=== PATIENT | female | born 1955 | race Caucasian/White ===

== ENCOUNTER → 2016-08-17 | Outpatient (CLI) | payer OTHER ==
[~2016-08-17] MED LIST: ADVI200T PO; ASPI81TA21 PO; ATOR1TAB21 PO; CITA20TA4 PO; GARL1CAP PO; HYDR25TAB PO; LISI-538 PO; OXYB15TA PO; VITA-193 PO; VITA200038 PO
[2016-08-17 12:25] LABS: BASO % 0.8 % (0.0-1.0); EOS # 0.3 K/mm3 (0.0-0.50); EOS % 4.6 % (0.0-3.0); LARGE UNSTAINED CELL # 0.2 K/mm3 (0.0-0.4); LARGE UNSTAINED CELL % 2.8 % (0.0-4.0); LYMPH # 2.2 K/mm3 (1.5-4.5); LYMPH % 35.6 % (24.0-44.0); MEAN CORPUSCULAR HEMOGLOBIN 30.9 pg (27.0-33.0); MEAN CORPUSCULAR HGB CONC 33.6 g/dl (32.0-36.5); MONO # 0.3 K/mm3 (0.0-0.8); MONO % 5.3 % (0.0-5.0); NEUTROPHILS # 2.8 K/mm3 (1.8-7.7); NEUTROPHILS % 50.9 % (36.0-66.0); PLATELET COUNT, AUTOMATED 210 k/mm3 (150-450); RED CELL DISTRIBUTION WIDTH 13.2 % (11.5-14.5); WHITE BLOOD COUNT 5.6 K/mm3 (4.0-10.0)
[2016-08-17 12:41] LABS: VITAMIN B12 LEVEL 502 PG/ML
[2016-08-17 12:42] LABS: FOLATE 9.2 NG/ML
[2016-08-17 12:51] LABS: ANION GAP 9 MEQ/L (8-16); BLOOD UREA NITROGEN 20 MG/DL (7-18); CARBON DIOXIDE LEVEL 30 MEQ/L (21-32); CHLORIDE LEVEL 103 MEQ/L (98-107); CREATININE FOR GFR 0.74 MG/DL (0.55-1.02); GLOMERULAR FILTRATION RATE > 60.0 (>45); GLUCOSE, FASTING 91 MG/DL (80-110); POTASSIUM SERUM 4.8 MEQ/L (3.5-5.1); SODIUM LEVEL 142 MEQ/L (136-145)
[2016-08-17 12:52] LABS: ALBUMIN/GLOBULIN RATIO 1.03 (1.00-1.93); ALKALINE PHOSPHATASE 68 U/L (45-117); ALT/SGPT 27 U/L (12-78); AST/SGOT 17 U/L (15-37); BILIRUBIN,TOTAL 0.6 MG/DL (0.2-1.0); CHOLESTEROL LEVEL 216 MG/DL (<200); FERRITIN 133 NG/ML (8-252); FREE T4 0.94 NG/DL (0.76-1.46); PERCENT SATURATION 18.5 % (13.2-37.4); TOTAL IRON BINDING CAPACITY 363 UG/DL (250-450); TOTAL PROTEIN 7.9 GM/DL (6.4-8.2); TRIGLYCERIDES LEVEL 148 MG/DL (<150)
== END ==
LOC: M LAB 11:32
PROVIDERS: ATTEND Physician Assistant Medical
DX: Z11.59 Encounter for screening for other viral diseases (principal); E78.2 Mixed hyperlipidemia; D50.9 Iron deficiency anemia, unspecified

== ENCOUNTER → 2017-01-25 | Outpatient (CLI) | payer OTHER ==
[~2017-01-25] MED LIST changes: +GARL10004 PO; -GARL1CAP PO
--- NOTE | 2017-01-26 01:28 | REP ---
Clinical: Pain. Technique: AP, lateral, bilateral oblique and sunrise views of the right knee. Findings: Early moderate arthritic changes include sclerosis to the tibial plateau and posterior patellar margin as well as associated patellofemoral and tibiofemoral joint space narrowing. Cortical irregularity and subtle early spurring involves the femoral condyles as well as the lateral margin of the patella. No acute fracture dislocation. No obvious effusion. Vascular calcifications noted. Impression: Early moderate arthritic changes. Signed by Sotero Ulloa MD 01/26/2017 01:20 A
== END ==
LOC: M WUC 14:20
PROVIDERS: ATTEND Physician Assistant Medical
DX: M17.11 Unilateral primary osteoarthritis, right knee (principal)

== ENCOUNTER → 2017-02-15 | Outpatient (CLI) | payer OTHER ==
--- NOTE | 2017-02-15 11:53 | REPMRS ---
Patient History The patient states she has not had a clinical breast exam in over a year. Patient is postmenopausal. No known family history of cancer. Digital Woman Screen Mammo: February 15, 2017 - Exam #: [id number] Bilateral CC and MLO view(s) were taken. Technologist: Georgina Kearns, Technologist Prior study comparison: January 08, 2016, digital woman screen mammo performed at [facility]. July 30, 2014, digital woman screen mammo performed at [facility]. February 01, 2012, digital woman screen mammo performed at [facility] to [facility]. FINDINGS: There are scattered fibroglandular densities. There has been no change in the appearance of the mammogram from the prior studies. There is a mild amount of scattered fibroglandular density which is fairly symmetric. There is no interval development of dominant mass, architectural distortion, or clustered microcalcification suggestive of malignancy. ASSESSMENT: BI-RADS/ACR category 1 mammogram. Negative. Recommendation Routine screening mammogram in 1 year (for women over age 40). This mammogram was interpreted with the aid of an FDA-approved computer-aided dectection system. Electronically Signed By: Ever Steen MD 02/15/17 1402
== END ==
LOC: M WHC 08:48
PROVIDERS: ATTEND Physician Assistant Medical
DX: Z12.31 Encounter for screening mammogram for malignant neoplasm of breast (principal); Z78.0 Asymptomatic menopausal state

== ENCOUNTER → 2017-04-19 | Outpatient (REF) | payer OTHER | LOC: M LAB REF 16:50 | PROVIDERS: ATTEND Physician Assistant Medical | DX: N39.0 Urinary tract infection, site not specified (principal) ==

== ENCOUNTER → 2017-06-04 | Outpatient (REF) | payer OTHER | LOC: M LAB REF 15:59 | PROVIDERS: ATTEND Physician Assistant Medical | DX: R30.9 Painful micturition, unspecified (principal) ==

== ENCOUNTER → 2017-06-17 | Outpatient (REF) | payer OTHER | LOC: M LAB REF 16:10 | PROVIDERS: ATTEND Physician Assistant Medical | DX: R30.0 Dysuria (principal) ==

== ENCOUNTER → 2017-07-20 | Outpatient (CLI) | payer OTHER ==
[2017-07-20 15:23] LABS: BASO # 0.1 10^3/uL (0.0-0.2); BASO % 0.8 % (0.0-1.0); EOS # 0.3 10^3/uL (0.0-0.50); EOS % 5.5 % (0.0-3.0); HEMOGLOBIN 12.2 g/dl (12.0-16.0); IMMATURE GRANULOCYTE % 0.3 % (0-0); LYMPH # 2.7 10^3/uL (1.5-4.5); LYMPH % 44.6 % (24.0-44.0); MEAN CORPUSCULAR HEMOGLOBIN 30.1 pg (27.0-33.0); MEAN CORPUSCULAR VOLUME 91.4 fl (80.0-96.0); MONO # 0.3 10^3/uL (0.0-0.8); MONO % 5.6 % (0.0-5.0); NEUTROPHILS # 2.6 10^3/uL (1.8-7.7); NEUTROPHILS % 43.2 % (36.0-66.0); PLATELET COUNT, AUTOMATED 230 10^3/uL (150-450); RED BLOOD COUNT 4.05 10^6/uL (4.00-5.40); WHITE BLOOD COUNT 6.1 10^3/uL (4.0-10.0)
[2017-07-20 15:49] LABS: ANION GAP 6 MEQ/L (8-16); BLOOD UREA NITROGEN 21 MG/DL (7-18); CALCIUM LEVEL 9.1 MG/DL (8.8-10.2); CARBON DIOXIDE LEVEL 32 MEQ/L (21-32); CHLORIDE LEVEL 105 MEQ/L (98-107); CHOLESTEROL LEVEL 228 MG/DL (<200); CHOLESTEROL RISK RATIO 3.619 (<5); CREATININE FOR GFR 0.66 MG/DL (0.55-1.02); GLOMERULAR FILTRATION RATE > 60.0 (>45); GLUCOSE, FASTING 81 MG/DL (70-100); HDL CHOLESTEROL 63 MG/DL (>40); LDL CHOLESTEROL 139.2 MG/DL (<100); NON-HDL-C 165 MG/DL; POTASSIUM SERUM 3.8 MEQ/L (3.5-5.1); SODIUM LEVEL 143 MEQ/L (136-145); TRIGLYCERIDES LEVEL 129 MG/DL (<150)
== END ==
LOC: M LAB 14:53
DX: E78.5 Hyperlipidemia, unspecified (principal)
CPT/HCPCS: 80061

== ENCOUNTER → 2017-07-29 | Outpatient (REF) | payer OTHER | LOC: M LAB REF 17:20 | DX: N39.0 Urinary tract infection, site not specified (principal) ==

== ENCOUNTER 2017-11-24 12:48 | Emergency (ER) | payer OTHER ==
[2017-11-24] MEDS ORDERED: MORPHINE 4 MG/ML 1ML VIAL/SYRINGE (J2270) As Ordered ×2 (13:22)
[2017-11-24] MEDS ORDERED: ONDANSETRON 4MG/2ML VIAL (J2405) As Ordered ×2 (13:22)
[2017-11-24 23:26] LABS: ALBUMIN 4.2 GM/DL (3.2-5.2); ALBUMIN/GLOBULIN RATIO 1.08 (1.00-1.93); ALKALINE PHOSPHATASE 70 U/L (45-117); ALT/SGPT 20 U/L (12-78); ANION GAP 8 MEQ/L (8-16); AST/SGOT 14 U/L (7-37); BILIRUBIN,DIRECT 0.2 MG/DL (0.0-0.2); BILIRUBIN,TOTAL 0.9 MG/DL (0.2-1.0); BLOOD UREA NITROGEN 25 MG/DL (7-18); CALCIUM LEVEL 9.7 MG/DL (8.8-10.2); CARBON DIOXIDE LEVEL 28 MEQ/L (21-32); CHLORIDE LEVEL 98 MEQ/L (98-107); CREATININE FOR GFR 1.05 MG/DL (0.55-1.30); GLOMERULAR FILTRATION RATE 56.5 (>45); GLUCOSE, FASTING 92 MG/DL (70-100); POTASSIUM SERUM 4.3 MEQ/L (3.5-5.1); SODIUM LEVEL 134 MEQ/L (136-145); TOTAL PROTEIN 8.1 GM/DL (6.4-8.2)
[2017-11-25 04:12] LABS: APPEARANCE, URINE HAZY (CLEAR); BACTERIA, URINE AUTO 1+ (NEGATIVE); BILIRUBIN, URINE AUTO NEGATIVE (NEGATIVE); BLOOD, URINE BLOOD 1+ (NEGATIVE); COLOR, URINE YELLOW (YELLOW); GLUCOSE, URINE (UA) AUTO NEGATIVE (NEGATIVE); KETONE, URINE AUTO NEGATIVE (NEGATIVE); LEUKOCYTE ESTERASE, URINE AUTO 3+ (NEGATIVE); MUCUS, URINE SMALL (NEGATIVE); NITRITE, URINE AUTO NEGATIVE (NEGATIVE); PROTEIN, URINE AUTO NEGATIVE (NEGATIVE); RBC, URINE AUTO 10 /HPF (0-3); SPECIFIC GRAVITY URINE AUTO 1.012 (1.002-1.035); SQUAMOUS EPITHELIAL CELL UR AU 7 /HPF (0-6); WBC, URINE AUTO 49 /HPF (0-3)
[2017-11-25 04:23] LABS: BASO # 0.1 10^3/uL (0.0-0.2); BASO % 0.9 % (0.0-1.0); EOS # 0.3 10^3/uL (0.0-0.50); EOS % 3.1 % (0.0-3.0); HEMOGLOBIN 13.4 g/dl (12.0-15.5); IMMATURE GRANULOCYTE % 0.2 % (0-3.0); LYMPH # 2.5 10^3/uL (1.5-4.5); MEAN CORPUSCULAR HGB CONC 33.5 g/dl (32.0-36.5); MEAN CORPUSCULAR VOLUME 89.5 fl (80.0-96.0); MONO # 0.6 10^3/uL (0.0-0.8); MONO % 6.9 % (0.0-5.0); NEUTROPHILS # 4.7 10^3/uL (1.8-7.7); NEUTROPHILS % 57.9 % (36.0-66.0); PLATELET COUNT, AUTOMATED 267 10^3/uL (150-450); RED BLOOD COUNT 4.47 10^6/uL (4.00-5.40); RED CELL DISTRIBUTION WIDTH 13.1 % (11.5-14.5); WHITE BLOOD COUNT 8.1 10^3/uL (4.0-10.0)
== END 2017-11-24 20:30 | disposition home or self-care (01) ==
LOC: M ED 12:48
DX: N12 Tubulo-interstitial nephritis, not specified as acute or chronic (principal); K59.00 Constipation, unspecified; R14.0 Abdominal distension (gaseous); R11.0 Nausea; Z79.899 Other long term (current) drug therapy; Z79.82 Long term (current) use of aspirin; Z88.8 Allergy status to other drugs, medicaments and biological substances
CPT/HCPCS: 76705; J2270

== ENCOUNTER → 2017-12-09 | Outpatient (REF) | payer OTHER | LOC: M LAB REF 17:18 | DX: R30.0 Dysuria (principal) ==

== ENCOUNTER → 2018-01-03 | Outpatient (REF) | payer OTHER ==
[2018-01-03 10:30] LABS: BASO % 0.8 % (0.0-1.0); EOS # 0.3 10^3/uL (0.0-0.50); EOS % 6.8 % (0.0-3.0); HEMATOCRIT 35.8 % (36.0-47.0); HEMOGLOBIN 11.9 g/dl (12.0-15.5); IMMATURE GRANULOCYTE % 0.2 % (0-3.0); LYMPH % 40.1 % (24.0-44.0); MEAN CORPUSCULAR HEMOGLOBIN 30.4 pg (27.0-33.0); MEAN CORPUSCULAR HGB CONC 33.2 g/dl (32.0-36.5); MEAN CORPUSCULAR VOLUME 91.6 fl (80.0-96.0); MONO # 0.3 10^3/uL (0.0-0.8); MONO % 6.8 % (0.0-5.0); NEUTROPHILS # 2.2 10^3/uL (1.8-7.7); NEUTROPHILS % 45.3 % (36.0-66.0); PLATELET COUNT, AUTOMATED 186 10^3/uL (150-450); RED BLOOD COUNT 3.91 10^6/uL (4.00-5.40); RED CELL DISTRIBUTION WIDTH 12.9 % (11.5-14.5); WHITE BLOOD COUNT 4.9 10^3/uL (4.0-10.0)
[2018-01-03 10:36] LABS: ALBUMIN 3.3 GM/DL (3.2-5.2); ALBUMIN/GLOBULIN RATIO 1.06 (1.00-1.93); ALKALINE PHOSPHATASE 54 U/L (45-117); ALT/SGPT 18 U/L (12-78); AMYLASE 32 U/L (25-115); ANION GAP 5 MEQ/L (8-16); AST/SGOT 13 U/L (7-37); BILIRUBIN,TOTAL 0.5 MG/DL (0.2-1.0); BLOOD UREA NITROGEN 14 MG/DL (7-18); CALCIUM LEVEL 8.6 MG/DL (8.8-10.2); CARBON DIOXIDE LEVEL 32 MEQ/L (21-32); CHLORIDE LEVEL 107 MEQ/L (98-107); GLOMERULAR FILTRATION RATE > 60.0 (>45); GLUCOSE, FASTING 86 MG/DL (70-100); LIPASE 71 U/L (73-393); POTASSIUM SERUM 4.1 MEQ/L (3.5-5.1); SODIUM LEVEL 144 MEQ/L (136-145); TOTAL PROTEIN 6.4 GM/DL (6.4-8.2)
== END ==
LOC: M LAB REF 08:22
DX: R10.13 Epigastric pain (principal)

== ENCOUNTER 2018-02-22 10:00 | Emergency (ER) | payer OTHER ==
[2018-02-22] MEDS: NS 1,000 ML IV ×3 (11:12→12:40)
[2018-02-22 11:18] LABS: BASO # 0.1 10^3/uL (0.0-0.2); BASO % 0.7 % (0.0-1.0); EOS # 0.2 10^3/uL (0.0-0.50); EOS % 1.7 % (0.0-3.0); HEMATOCRIT 36.9 % (36.0-47.0); HEMOGLOBIN 12.7 g/dl (12.0-15.5); IMMATURE GRANULOCYTE % 0.5 % (0-3.0); LYMPH # 3.4 10^3/uL (1.5-4.5); LYMPH % 30.6 % (24.0-44.0); MEAN CORPUSCULAR HEMOGLOBIN 30.7 pg (27.0-33.0); MEAN CORPUSCULAR HGB CONC 34.4 g/dl (32.0-36.5); MEAN CORPUSCULAR VOLUME 89.1 fl (80.0-96.0); MONO # 0.7 10^3/uL (0.0-0.8); MONO % 6.1 % (0.0-5.0); NEUTROPHILS # 6.7 10^3/uL (1.8-7.7); NEUTROPHILS % 60.4 % (36.0-66.0); PLATELET COUNT, AUTOMATED 305 10^3/uL (150-450); RED BLOOD COUNT 4.14 10^6/uL (4.00-5.40); RED CELL DISTRIBUTION WIDTH 13.2 % (11.5-14.5)
[2018-02-22] MEDS: ONDANSETRON 4MG/2ML VIAL (J2405) IV (11:26)
[2018-02-22 11:31] LABS: INR 1.12; PROTHROMBIN TIME 14.5 SECONDS (12.1-14.4)
[2018-02-22 11:36] LABS: ALBUMIN 3.8 GM/DL (3.2-5.2); ALBUMIN/GLOBULIN RATIO 1.03 (1.00-1.93); ALKALINE PHOSPHATASE 66 U/L (45-117); ALT/SGPT 18 U/L (12-78); ANION GAP 12 MEQ/L (8-16); AST/SGOT 13 U/L (7-37); BILIRUBIN,DIRECT 0.2 MG/DL (0.0-0.2); BLOOD UREA NITROGEN 24 MG/DL (7-18); CALCIUM LEVEL 9.8 MG/DL (8.8-10.2); CARBON DIOXIDE LEVEL 26 MEQ/L (21-32); CHLORIDE LEVEL 98 MEQ/L (98-107); CREATININE FOR GFR 1.45 MG/DL (0.55-1.30); GLUCOSE, FASTING 91 MG/DL (70-100); LIPASE 81 U/L (73-393); POTASSIUM SERUM 3.8 MEQ/L (3.5-5.1); SODIUM LEVEL 136 MEQ/L (136-145); TOTAL PROTEIN 7.5 GM/DL (6.4-8.2)
[2018-02-22 11:40] LABS: LACTIC ACID SEPSIS PROTOCOL 2.7 MMOL/L (0.4-2.0)
[2018-02-22 15:40] LABS: LACTIC ACID SEPSIS PROTOCOL 1.7 MMOL/L (0.4-2.0)
== END 2018-02-22 16:31 | disposition home or self-care (01) ==
LOC: M ED 10:00
DX: E86.0 Dehydration (principal); R11.2 Nausea with vomiting, unspecified; R19.7 Diarrhea, unspecified; I10 Essential (primary) hypertension; E78.5 Hyperlipidemia, unspecified; Z79.899 Other long term (current) drug therapy; Z79.82 Long term (current) use of aspirin; Z88.8 Allergy status to other drugs, medicaments and biological substances
CPT/HCPCS: J2405

== ENCOUNTER → 2018-05-24 | Outpatient (REF) | payer OTHER ==
[2018-05-24 18:00] LABS: AMORPHOUS SEDIMENT SMALL (NEGATIVE); APPEARANCE, URINE TURBID (CLEAR); BACTERIA, URINE AUTO 2+ (NEGATIVE); BILIRUBIN, URINE AUTO NEGATIVE (NEGATIVE); BLOOD, URINE BLOOD NEGATIVE (NEGATIVE); COLOR, URINE AMBER (YELLOW); GLUCOSE, URINE (UA) AUTO NEGATIVE (NEGATIVE); KETONE, URINE AUTO TRACE mg/dL (NEGATIVE); LEUKOCYTE ESTERASE, URINE AUTO TRACE (NEGATIVE); MUCUS, URINE LARGE (NEGATIVE); NITRITE, URINE AUTO POSITIVE (NEGATIVE); PROTEIN, URINE AUTO 2+ mg/dL (NEGATIVE); RBC, URINE AUTO 15 /HPF (0-3); SPECIFIC GRAVITY URINE AUTO 1.016 (1.002-1.035); SQUAMOUS EPITHELIAL CELL UR AU 9 /HPF (0-6); WBC, URINE AUTO TNTC /HPF (0-3)
== END ==
LOC: M LAB REF 17:36
DX: R35.0 Frequency of micturition (principal); R30.0 Dysuria
CPT/HCPCS: 81001

== ENCOUNTER → 2018-06-15 | Outpatient (REF) | payer OTHER | LOC: M LAB REF 13:04 | PROVIDERS: ATTEND Physician Assistant Medical | DX: R30.0 Dysuria (principal) ==

== ENCOUNTER → 2018-06-16 | Outpatient (REF) | payer OTHER | LOC: M LAB REF 13:04 | PROVIDERS: ATTEND Physician Assistant Medical | DX: R30.0 Dysuria (principal) ==

== ENCOUNTER → 2019-01-26 | Outpatient (CLI) | payer OTHER ==
[~2019-01-26] MED LIST changes: -CITA20TA4 PO; +CITA20TA6 PO
--- NOTE | 2019-01-26 14:51 | REP ---
Right knee five views : There is no fracture or dislocation. Mineralization and joint spaces are normal. There are no calcifications or foreign bodies. Impression: Negative right knee . Electronically Signed by Carl Islas MD 01/26/2019 02:42 P
[2019-01-26 15:40] LABS: ALBUMIN 3.9 GM/DL (3.2-5.2); BILIRUBIN,TOTAL 0.8 MG/DL (0.2-1.0); CALCIUM LEVEL 9.4 MG/DL (8.8-10.2); CHOLESTEROL RISK RATIO 3.795 (<5); CREATININE FOR GFR 1.04 MG/DL (0.55-1.30); MAGNESIUM LEVEL 1.9 MG/DL (1.8-2.4); POTASSIUM SERUM 4.6 MEQ/L (3.5-5.1); TOTAL PROTEIN 7.3 GM/DL (6.4-8.2)
[2019-01-26 15:42] LABS: HEMOGLOBIN A1c 5.8 %
== END ==
LOC: M WUC 14:06
PROVIDERS: ATTEND Physician Assistant Medical
DX: E78.5 Hyperlipidemia, unspecified (principal); M25.561 Pain in right knee

== ENCOUNTER → 2019-04-25 | Outpatient (CLI) | payer OTHER ==
[~2019-04-25] MED LIST changes: +CYAN500T9 PO; -VITA-193 PO
--- NOTE | 2019-04-25 15:31 | REPMRS ---
Patient History The patient states she had a clinical breast exam in 02/2019. Patient is postmenopausal. No known family history of cancer. 3D TOMOSYNTHESIS WAS PERFORMED. [facility] lifetime risk for breast cancer is 5.2%. Digital Woman Screen Mammo: April 25, 2019 - Exam #: [id number] Bilateral CC and MLO view(s) were taken. Technologist: Cristine Queen, Technologist Prior study comparison: February 15, 2017, digital woman screen mammo performed at [facility]. January 08, 2016, digital woman screen mammo performed at [facility]. FINDINGS: There are scattered fibroglandular densities. There has been no change in the appearance of the mammogram from the prior studies. There is a mild amount of residual fibroglandular tissue which is fairly symmetric. There is no interval development of dominant mass, architectural distortion, or clustered microcalcification suggestive of malignancy. Assessment: BI-RADS/ACR category 1 mammogram. Negative Mammogram. Recommendation Routine screening mammogram in 1 year (for women over age 40). This mammogram was interpreted with the aid of an FDA-approved computer-aided dectection system. Electronically Signed By: Carl Simms MD 04/25/19 [id number]
== END ==
LOC: M WHC 14:29
PROVIDERS: ATTEND Physician Assistant Medical
DX: Z12.31 Encounter for screening mammogram for malignant neoplasm of breast (principal); Z78.0 Asymptomatic menopausal state

== ENCOUNTER 2019-07-31 14:46 | Emergency (ER) | payer OTHER ==
[~2019-07-31] VITALS: Ht 162.6 cm; Wt 75.4 kg
[~2019-07-31 14:46] MED LIST changes: -OXYB15TA PO; +OXYB15TA14 PO
[2019-07-31 15:24] LABS: BASO # 0.1 10^3/uL (0.0-0.2); BASO % 0.6 % (0.0-1.0); EOS # 0.2 10^3/uL (0.0-0.5); EOS % 1.6 % (0.0-3.0); HEMATOCRIT 39.4 % (36.0-47.0); HEMOGLOBIN 12.8 g/dl (12.0-15.5); LYMPH # 2.7 10^3/uL (1.5-5.0); LYMPH % 28.6 % (24.0-44.0); MEAN CORPUSCULAR HEMOGLOBIN 29.8 pg (27.0-33.0); MEAN CORPUSCULAR HGB CONC 32.5 g/dl (32.0-36.5); MEAN CORPUSCULAR VOLUME 91.8 fl (80.0-96.0); MONO # 0.6 10^3/uL (0.0-0.8); MONO % 6.5 % (0.0-5.0); NEUTROPHILS # 5.9 10^3/uL (1.5-8.5); NEUTROPHILS % 62.4 % (36.0-66.0); PLATELET COUNT, AUTOMATED 262 10^3/uL (150-450); RED BLOOD COUNT 4.29 10^6/uL (4.00-5.40); WHITE BLOOD COUNT 9.5 10^3/uL (4.0-10.0)
[2019-07-31] MEDS ORDERED: ASPIRIN 81 MG CHEW TABLET PO ONE (15:30)
[2019-07-31] MEDS ORDERED: NITROGLYCERIN 0.4 MG SUBL TABLET SL PRN (15:30)
[2019-07-31 15:53] LABS: BLOOD UREA NITROGEN 25 MG/DL (7-18); CARBON DIOXIDE LEVEL 29 MEQ/L (21-32); CHLORIDE LEVEL 104 MEQ/L (98-107); CK-MB VALUE MASS < 1.0 NG/ML (<3.6); CPK CREATINE PHOSPHOKINASE 36 U/L (26-192); GLOMERULAR FILTRATION RATE > 60.0 (>45); GLUCOSE, FASTING 111 MG/DL (70-100); MB/CK RELATIVE INDEX 2.78 (< OR =4); POTASSIUM SERUM 3.7 MEQ/L (3.5-5.1); SODIUM LEVEL 137 MEQ/L (136-145); TROPONIN I < 0.02 NG/ML (< 0.10)
[2019-07-31] MEDS: NITROGLYCERIN 0.4 MG SUBL TABLET SL PRN ×2 (16:02→16:19)
[2019-07-31 16:07] LABS: INR 1.12; PROTHROMBIN TIME 14.1 SECONDS (11.8-14.0)
[2019-07-31 16:08] LABS: ALBUMIN 3.6 GM/DL (3.2-5.2); ALT/SGPT 23 U/L (12-78); BILIRUBIN,DIRECT 0.2 MG/DL (0.0-0.2); BILIRUBIN,TOTAL 0.8 MG/DL (0.2-1.0); LIPASE 51 U/L (73-393)
[2019-07-31 16:11] LABS: PARTIAL THROMBOPLASTIN TIME 36.4 SECONDS (25.0-38.4)
[2019-07-31 16:19] VITALS: BP 118/58
[2019-07-31] MEDS ORDERED: ISOVUE-370 76% 100ML VIAL (Q9967) As Ordered ONE (16:29)
--- NOTE | 2019-07-31 17:18 | REP ---
CT of the chest with IV contrast, CT pulmonary artery angiography: There are no comparison chest CTs. There are no emboli in the pulmonary trunk or central pulmonary arteries. There are no emboli in the pulmonary lobe or segment branches. There are no infiltrates or pleural effusions. There is dependent atelectasis. There is a 4 ml lung nodule in the right upper lobe anteriorly on image 32. No other lung nodules are identified. I would recommend 6-month chest CT follow-up. There is no hilar or mediastinal lymphadenopathy. There is no axillary lymphadenopathy. The thoracic aorta is unremarkable. Cardiac size is normal. There is no pericardial effusion. The visualized upper abdominal contents are unremarkable. Impression: There are no pulmonary emboli. There are no infiltrates or effusions. There is a right upper lobe 4 ml lung nodule. I would recommend follow-up chest CT this nodule in 6 months. Electronically Signed by Carl Islas MD 07/31/2019 05:10 P
--- NOTE | 2019-07-31 19:18 | ECGEPIP ---
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
[2019-07-31 21:20] LABS: CK-MB VALUE MASS < 1.0 NG/ML (<3.6); CPK CREATINE PHOSPHOKINASE 35 U/L (26-192); MB/CK RELATIVE INDEX 2.86 (< OR =4); TROPONIN I < 0.02 NG/ML (< 0.10)
[2019-07-31 21:34] VITALS: BP 143/66
--- NOTE | 2019-08-01 07:23 | REP ---
Portable chest, 03:16 p.m., single AP view with the patient upright: Comparison is 12/21/2013. The lung crowley are clear. The cardiac size is normal. The maximilian, mediastinum, and skeletal structures are unremarkable. Impression: Negative portable chest. There is no interval change. Electronically Signed by Carl Islas MD 07/31/2019 03:25 P
--- NOTE | 2019-08-01 12:06 | ED PDOC ---
Post-Departure Follow-Up sawyer rueda faxed formal report of cta chest for fu Elsy Angeles MD Aug 01, 2019 12:06
--- NOTE | 2019-08-02 14:45 | ECGEPIP ---
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
== END 2019-07-31 22:08 | disposition home or self-care (01) ==
LOC: M ED 14:46
DX: R91.1 Solitary pulmonary nodule (principal); I10 Essential (primary) hypertension; E78.5 Hyperlipidemia, unspecified; Z79.899 Other long term (current) drug therapy; Z79.82 Long term (current) use of aspirin; Z88.8 Allergy status to other drugs, medicaments and biological substances; Z87.891 Personal history of nicotine dependence
CPT/HCPCS: 36415; 71045; 71275; 80048; 80076; 82550; 82553; 83690; 84484; 85025; 85610; 85730; 93005; 93041; 94760; 99285; Q9967

== ENCOUNTER → 2019-11-22 | Outpatient (REF) | payer OTHER ==
[2019-11-23 11:24] LABS: AMORPHOUS SEDIMENT LARGE (NEGATIVE); APPEARANCE, URINE TURBID (CLEAR); BACTERIA, URINE AUTO 2+ (NEGATIVE); BILIRUBIN, URINE AUTO NEGATIVE (NEGATIVE); BLOOD, URINE BLOOD 1+ (NEGATIVE); COLOR, URINE AMBER (YELLOW); GLUCOSE, URINE (UA) AUTO NEGATIVE (NEGATIVE); KETONE, URINE AUTO NEGATIVE (NEGATIVE); LEUKOCYTE ESTERASE, URINE AUTO 3+ (NEGATIVE); MUCUS, URINE SMALL (NEGATIVE); NITRITE, URINE AUTO POSITIVE (NEGATIVE); PROTEIN, URINE AUTO 2+ mg/dL (NEGATIVE); RBC, URINE AUTO 41 /HPF (0-3); SPECIFIC GRAVITY URINE AUTO 1.011 (1.002-1.035); SQUAMOUS EPITHELIAL CELL UR AU 4 /HPF (0-6); WBC, URINE AUTO TNTC /HPF (0-3)
== END ==
LOC: M LAB REF 10:18
PROVIDERS: ATTEND Family Medicine
DX: R30.0 Dysuria (principal); R35.0 Frequency of micturition

== ENCOUNTER → 2020-03-14 | Outpatient (CLI) | payer OTHER ==
[~2020-03-14] MED LIST changes: +CYAN500T10 PO; -CYAN500T9 PO
--- NOTE | 2020-03-29 13:26 | REP ---
BILATERAL LOWER EXTREMITY ARTERIAL ULTRASOUND CLINICAL: Atherosclerotic disease with symptoms related to claudication. TECHNIQUE: Real-time blount scale and color Doppler evaluation of the bilateral lower extremity arterial structures using linear high frequency transducer. FINDINGS: Extensive atheromatous calcified plaquing noted bilaterally. The right lower extremity demonstrates a mild less than 2:1 stenosis of the distal superficial femoral artery and findings to suggest occlusion of the distal anterior tibial artery. The left lower extremity demonstrates 2:1 stenosis at the level of the profunda artery without further stenosis or occlusion. VELOCITY CHART BILATERAL LOWER EXTREMITIES RIGHT (cm/s) LEFT (cm/s) JEFFERSON 0.7 0.5 Common femoral artery 157 triphasic 130 triphasic Profunda 195 triphasic 263 triphasic Proximal SFA 171 biphasic 43.7 monophasic Mid SFA 163 triphasic 72 monophasic Distal SFA 211 biphasic 60 monophasic Popliteal artery 83 biphasic 84 monophasic Proximal LORENZA 32 monophasic 28 monophasic Tibioperoneal trunk 78 biphasic 91 monophasic Proximal BREAST TRIMMER 94 biphasic 46 monophasic Distal BREAST TRIMMER 71 biphasic 51 monophasic Distal LORENZA Occluded 21 monophasic IMPRESSION: Severe partially calcified atheromatous plaquing noted bilaterally. Specific findings as described above. MTDD
== END ==
LOC: M RAD 08:51
PROVIDERS: ATTEND Physician Assistant
DX: I70.203 Unspecified atherosclerosis of native arteries of extremities, bilateral legs (principal)

== ENCOUNTER → 2020-03-28 | Outpatient (CLI) | payer BC, OTHER ==
[2020-03-28 11:30] LABS: HEMATOCRIT 40.7 % (36.0-47.0); HEMOGLOBIN 13.2 g/dl (12.0-15.5); MEAN CORPUSCULAR HEMOGLOBIN 30.3 pg (27.0-33.0); MEAN CORPUSCULAR HGB CONC 32.4 g/dl (32.0-36.5); MEAN CORPUSCULAR VOLUME 93.6 fl (80.0-96.0); PLATELET COUNT, AUTOMATED 256 10^3/uL (150-450); RED BLOOD COUNT 4.35 10^6/uL (4.00-5.40); WHITE BLOOD COUNT 6.5 10^3/uL (4.0-10.0)
[2020-03-28 11:58] LABS: BLOOD UREA NITROGEN 23 MG/DL (7-18); CALCIUM LEVEL 9.5 MG/DL (8.8-10.2); CARBON DIOXIDE LEVEL 30 MEQ/L (21-32); CHLORIDE LEVEL 104 MEQ/L (98-107); CREATININE FOR GFR 0.71 MG/DL (0.55-1.30); GLOMERULAR FILTRATION RATE > 60.0 (>45); GLUCOSE, FASTING 96 MG/DL (70-100); POTASSIUM SERUM 3.9 MEQ/L (3.5-5.1); SODIUM LEVEL 140 MEQ/L (136-145)
== END ==
LOC: M LAB 10:14
PROVIDERS: ATTEND Physician Assistant
DX: I70.213 Atherosclerosis of native arteries of extremities with intermittent claudication, bilateral legs (principal)

== ENCOUNTER → 2020-04-04 | Outpatient (CLI) | payer MEDICARE ==
--- NOTE | 2020-04-04 09:34 | REPMRS ---
Patient History The patient states she has not had a clinical breast exam in over a year. No known family history of cancer. 3D TOMOSYNTHESIS WAS PERFORMED. [facility] lifetime risk for breast cancer is 5.2%. OLVIN Loera. Digital Woman Screen Mammo: April 04, 2020 - Exam #: [id number] Bilateral CC and MLO view(s) were taken. Technologist: Catarina Chen, Technologist Prior study comparison: April 25, 2019, bilateral digital woman screen mammo performed at [facility]. February 15, 2017, digital woman screen mammo performed at [facility]. FINDINGS: There are scattered fibroglandular densities. There has been no change in the appearance of the mammogram from the prior studies. There is a mild amount of residual fibroglandular tissue which is fairly symmetric. There is no interval development of dominant mass, architectural distortion, or clustered microcalcification suggestive of malignancy. Assessment: BI-RADS/ACR category 1 mammogram. Negative Mammogram. Recommendation Routine screening mammogram in 1 year (for women over age 40). This mammogram was interpreted with the aid of an FDA-approved computer-aided dectection system. Electronically Signed By: Carl Simms MD 04/04/20 0934
== END ==
LOC: M WHC 07:32
PROVIDERS: ATTEND Nurse Practitioner Family
DX: Z12.31 Encounter for screening mammogram for malignant neoplasm of breast (principal)

== ENCOUNTER → 2020-05-01 | Outpatient (CLI) | payer MEDICARE, OTHER ==
[~2020-05-01] MED LIST changes: +ACETAMINOPHEN 325 MG TAB As Ordered ONE; +ISOVUE-300 61% 50ML VIAL As Ordered ONE; +LIDOCAINE 1% MDV 20ML VIAL As Ordered ONE; +MIDAZOLAM INJ 2MG/2ML VIAL (J2250 PER 1MG) As Ordered ONE; +ONDANSETRON 4MG/2ML VIAL As Ordered ONE; +ONDANSETRON 4MG/2ML VIAL IV PRN; +PANTOPRAZOLE 40MG VIAL (C9113 PER 1) IV PRN; +VANCOMYCIN 500MG/10ML VIAL As Ordered ONE; +fentaNYL 100 MCG/2 ML INJECTION (J3010) As Ordered ONE
--- NOTE | 2020-05-01 09:19 | ROOPDOC ---
[facility] Report Of Operation Report of Operation DATE OF PROCEDURE: 05/01/20 PREPROCEDURE DIAGNOSES: Atherosclerosis the [place] arteries with bilateral lower extremity I still limiting claudication, left lower extremity greater than right POSTPROCEDURE DIAGNOSES: Same PROCEDURE: 1. Ultrasound-guided access right common femoral artery 2. Aortoiliofemoral arteriogram 3. Selection left common iliac artery and oblique views left iliac arteries 4. Selection left common femoral artery and left lower extremity runoff 5. Cross chronic total occlusion left superficial femoral artery and selection of left popliteal artery with runoff 6. Angioplasty left superficial femoral artery and popliteal artery with 5 x 200 Streator balloon 7. Stenting proximal left popliteal artery with 5 x 100 Innova stent, and proximal extension through SFA with 6 x 150 and 6 x 100 Innova stent 8. Postdilatation stents with 5 x 200 and 6 x 100 Streator balloon 9. Predilation left iliac system was 6 x 100 Streator balloon 10. Stent left external iliac into distal common iliac artery with 7 x 57 express balloon expandable stent 11. Stent right external iliac artery into distal common iliac artery was 7 x 57 express balloon expandable stent 12. Completion arteriograms 13. Mynx closure right common femoral artery SURGEON: Katya Mansfield MD ANESTHESIA: Local anesthesia 10 mL lidocaine. Moderate intravenous conscious sedation with supervised by Dr. Mansfield. The patient was independently monitored by registered nurse assigned to the Department of radiology using automated blood pressure, EKG, and pulse oximetry. The details sedation record is permanently stored in the hospital information system. The following is a brief sedation record: Start time 07:30, stop time 08:48, Versed 2 mg IV, fentanyl 100 g IV, heparin 4000 units IV. CONTRAST: 88 mL Isovue-300 INDICATION FOR PROCEDURE: This is a very pleasant 65-year-old patient with atherosclerosis in the [place] arteries and lifestyle limiting claudication, left lower extremity greater than right. Risks benefits and alternatives to an arteriogram and potential intervention were explained to the patient she is agreeable to proceed. Informed consent was obtained. INTERPRETATION: 1. The distal aorta and proximal common iliac arteries are ectatic but no flow- limiting stenoses are noted inflow is rapid. The distal common iliac arteries and proximal external iliac arteries bilaterally are diffusely ectatic and stenotic, with focal areas as high as 80% stenosis. The hypogastric arteries are patent bilaterally but heavily calcified. Both distal external iliac arteries and common femoral arteries bilaterally has heavy plaque and I estimate about 40% stenosis bilaterally. 2. The left common femoral artery is rapid flow into the profunda which has extensive collaterals through the thigh to the above-knee popliteal artery. The SFA occludes at its origin and does not reconstitute until the collaterals near [place]ino's canal. The popliteal artery is ectatic proximally with areas of 20-40% stenosis focally, and distal to this it is mildly ectatic but no flow-limiting stenoses are noted. There is excellent runoff through the tibioperoneal trunk and the posterior tibial artery and peroneal artery. These are the main runoff to the foot. The posterior tibial artery fills all the pedal vessels. There are also some collaterals to the proximal foot and to the anterior tibial artery distally from the peroneal artery at the ankle. The anterior tibial artery is chronically occluded near its origin and does not fully reconstitute distally. There are extensive thready collaterals and it does have some intermittent reconstitution but no significant flow to the foot. 3. After crossing the occlusion in the SFA and angioplasty, there is still significant flow limiting stenoses and small dissections throughout the SFA and proximal popliteal artery. After stenting from the proximal popliteal artery to the origin of the SFA and post dilating with balloons, there are still a few areas of residual stenosis and repeat angioplasty was performed. Following that there was widely patent flow throughout the SFA and popliteal artery with rapid flow through the tibial see foot. No extravasation no embolization no dissections noted. No significant residual stenosis noted. 4. After predilation of the left distal common iliac artery proximal to mid external iliac artery, a 7 x 57 balloon expandable stent provided widely patent flow with no significant residual stenosis. We did note again that there is significant stenosis at the very distal external iliac artery, not amenable to stenting, and throughout the common femoral artery due to chronic heavy plaque. 5. After stenting the right distal common iliac artery through proximal mid external iliac artery with a 7 x 57 balloon expandable stent, there is widely patent flow with no significant residual stenosis, but we did again note there is some heavy chronic plaque in the distal external iliac artery, not amenable to stenting, and the common femoral artery. REPORT OF OPERATION: The patient was brought to the angiographic suite in stable condition. Her bilateral groins were prepped and draped in a sterile fashion. Timeout was performed. Sedation was administered without complication. Local anesthesia was a loan closer to the skin and subcutaneous tissue over the right common femoral artery. A microneedle was used to access the artery under ultrasound guidance. A wire was passed through this access and the needle was removed. A 4 Vincentian sheath was placed and flushed with saline. A Glidewire and flushing catheter were advanced into the distal aorta. Aortoiliofemoral arteriograms were performed. Please interpretation above. We then went up and over the bifurcation to the left common iliac artery and a left oblique image of the iliac vessels was performed. Please interpretation above. We then advanced the catheter over the wire into the common femoral artery and the left and left lower extremity runoff was performed. Please interpretation above. We then exchanged the sheath over the wire for 6 x 45 cm destination sheath and a [place] catheter and Glidewire were used to carefully cross through the occlusion from the origin of the SFA to [place]ino's canal. This took a bit of time, but eventually we were able to cross into the true lumen and adequate contrast injection confirmed we were in the true lumen at the popliteal artery. We then angioplasty across length of the vessel for three-minute inflations with a 5 x 200 Streator balloon. Following this there was still significant flow limitation due to dissections, residual stenosis, and heavy plaque and therefore we stented the length of the area we angioplastied with a 5 x 100, 6 x 150, and a 6 x 100 Innova stent from distal to proximal. These were postdilated with a 5 x 200 balloon but there is still some residual stenosis proximally, so a 6 x 100 balloon was used to post-dilate the stents as well. Following this there was widely patent flow through the SFA with no significant residual stenosis and rapid flow to the distal system with no extravasation no dissection no embolization. We attempted to cross the left anterior tibial artery but this was unsuccessful and aborted. There are too many collaterals and the wire continued to select the collaterals and not true vessel. The patient has excellent flow through the other 2 tibial arteries I did not feel it was worthwhile to aggressively pursue reconstitution of the anterior tibial artery since she does not have any wounds or further indication at this time. We then retracted our sheath to the proximal left common iliac artery and predilated the vessel with a 6 x 100 balloon across the left iliac system. We then selected a 7 x 57 express stent and placed this from the mid external iliac artery to the distal common iliac artery and completion arteriogram showed widely patent flow with no significant residual stenosis except for again noting heavy plaque in the distal external iliac artery and common femoral artery as previously described above. We then retracted the sheath and exchange it for short 6 Vincentian sheath which was flushed with saline. We selected a 7 x 57 express stent and deployed this from the mid external iliac artery to the distal common iliac artery on the right and following this there was widely patent flow through the right iliac system but we did again note heavy plaque at the distal external iliac artery and common femoral artery as described above. There was an excellent pulse in both groins following iliac stenting. We then to play Mynx closure device at the right common femoral artery and held pressure for 10 minutes for good hemostasis. Sterile dressings were applied. The patient was taken to recovery in stable condition. She tolerated the procedure and the sedation well. ESTIMATED BLOOD LOSS: Approximately 5 mL. COMPLICATIONS: None. PLAN: Okay to resume home diet medications. Okay to resume Plavix. Avoid lifting greater than 5 pounds or strenuous exercise for 48 hours. Return to clinic in a week to check groin access site and perfusion. Continue ambulation as tolerated. I'm hopeful that opening up the iliac flow in the right might be enough to resolve her symptoms, and if so she would not require a right lower extremity arteriogram at this time. If not, we can certainly discuss pursuing the right lower extremity at her next clinic visit. We appreciate the opportunity to participate in the care of this patient. KATYA MANSFIELD MD May 01, 2020 09:19
[2020-05-01 12:30] VITALS: BP 153/71
== END ==
LOC: M IRPRO 06:08
PROVIDERS: ATTEND Surgery Vascular Surgery
DX: I70.213 Atherosclerosis of native arteries of extremities with intermittent claudication, bilateral legs (principal); I70.92 Chronic total occlusion of artery of the extremities
CPT/HCPCS: 37221; 37226; 75630; 75774; 99152; 99153; C1725; C1760; C1769; C1876; C1887; C1894; J1644; J2250; J2405; J3010; Q9967

== ENCOUNTER → 2020-05-27 | Outpatient (CLI) | payer MEDICARE ==
[~2020-05-27] MED LIST changes: -ACETAMINOPHEN 325 MG TAB As Ordered ONE; -ISOVUE-300 61% 50ML VIAL As Ordered ONE; -LIDOCAINE 1% MDV 20ML VIAL As Ordered ONE; -MIDAZOLAM INJ 2MG/2ML VIAL (J2250 PER 1MG) As Ordered ONE; -ONDANSETRON 4MG/2ML VIAL As Ordered ONE; -ONDANSETRON 4MG/2ML VIAL IV PRN; -PANTOPRAZOLE 40MG VIAL (C9113 PER 1) IV PRN; -VANCOMYCIN 500MG/10ML VIAL As Ordered ONE; -fentaNYL 100 MCG/2 ML INJECTION (J3010) As Ordered ONE
[2020-05-27 15:05] LABS: CHOLESTEROL RISK RATIO 3.896 (<5)
== END ==
LOC: M LAB 13:59
PROVIDERS: ATTEND Nurse Practitioner Family
DX: E78.49 Other hyperlipidemia (principal)

== ENCOUNTER → 2020-06-13 | Outpatient (CLI) | payer MEDICARE ==
--- NOTE | 2020-06-13 13:27 | REP ---
INDICATION: ATHSCL MANZANITA ARTERIES W/ CALUDICATION TAWANDA LEG. Peripheral vascular disease. Bilateral external iliac artery stents. Left superficial femoral artery stent. COMPARISON: Comparison study March 14, 2020.. TECHNIQUE: Bilateral lower extremity arterial Doppler ultrasound. FINDINGS: Ankle brachial indices are measured at 0.64 on the right and 0.90 on the left. This is improvement on the left from the prior study when it was 0.5. Severe plaquing is observed bilaterally. The stents in the distal common and external iliac arteries are not well visualized but there is no evidence of a stenosis or occlusion. But biphasic and triphasic waveforms are noted throughout both lower extremities. Mild stenosis is noted in the common femoral artery on each side. There is a mild stenosis in the distal superficial femoral artery on the right. Bilateral occlusions are seen in the anterior tibial arteries with reversed flow distally on each side. The left superficial femoral artery stent is patent. Very slow trickle flow is observed in the distal LORENZA on the left. Right lower extremity arterial Doppler velocity chart: Aortic PSV 144 cm/S Right common iliac 181 Retic right external iliac 136 Right KITCHEN AIDE PSV 217/127 Profundal 213 Proximal SFA 173 Mid SFA 133 Distal SFA 130/222 Popliteal 85/ext 67 Proximal LORENZA 63/0 occluded Tibial-peroneal trunk 50 Proximal INFANTRYMAN 64/100 Distal INFANTRYMAN 57 Distal LORENZA 27 revascularized Left lower extremity arterial Doppler velocity chart: Aorta PSV 144 cm/S Left LEONARDO 165 cm/S Left EIA 139 KITCHEN AIDE 1229/179 Profundal 153 Proximal SFA 141 Mid SFA 84 Distal SFA 66 Popliteal 120/88 Proximal LORENZA 75/0 occluded Tibial-peroneal trunk 67 Proximal INFANTRYMAN 79 Distal INFANTRYMAN 68 Distal LORENZA revascularized 10 IMPRESSION: Atherosclerotic disease as above. <Electronically signed by Ever Steen > 06/13/20 2201
== END ==
LOC: M RAD 10:14
PROVIDERS: ATTEND Physician Assistant
DX: I70.213 Atherosclerosis of native arteries of extremities with intermittent claudication, bilateral legs (principal); Z95.820 Peripheral vascular angioplasty status with implants and grafts

== ENCOUNTER → 2020-07-23 | Outpatient (CLI) | payer MEDICARE ==
[~2020-07-23] MED LIST changes: -CYAN500T10 PO; +HYDR-3490 PO; -HYDR25TAB PO; -LISI-538 PO; +LISI20TA33 PO; +VITA500T37 PO
--- NOTE | 2020-07-23 16:06 | REP ---
INDICATION: Assess stenosis COMPARISON: None TECHNIQUE: Carotid ultrasonography was performed bilaterally FINDINGS: Right: CCA systolic: 108.1 centimeters/second CCA diastolic: 19.2 centimeters/second ICA systolic: 82.0 centimeters/second ICA diastolic: 20.2 centimeters/second ICA CCA ratio: 0.76 Left: CCA systolic: 99.0 centimeters/second CCA diastolic: 15.6 centimeters/second ICA systolic: 212.9 centimeters/second ICA diastolic: 42.6 centimeters/second ICA CCA ratio: 2.15 Vertebral artery: Right: Antegrade left: Antegrade Patchy echogenic material is seen along the carotid arterial hopkins some of which casts in acoustic shadow consistent with calcific deposition. Analysis of the spectral waveforms shows spectral broadening left internal carotid artery. IMPRESSION: 1. According to the SRU criteria there is a 50-69% stenosis of the left internal carotid artery. This is secondary to both calcified and noncalcified plaque formation. 2. Using the same criteria there is less than 50% stenosis of the right internal carotid artery. <Electronically signed by Jamie Love > 07/23/20 [id number]
== END ==
LOC: M RAD 14:34
PROVIDERS: ATTEND Physician Assistant
DX: I65.23 Occlusion and stenosis of bilateral carotid arteries (principal)

== ENCOUNTER → 2020-08-08 | Outpatient (CLI) | payer MEDICARE ==
[2020-08-08 11:37] LABS: BLOOD UREA NITROGEN 25 MG/DL (7-18); CREATININE FOR GFR 0.86 MG/DL (0.55-1.30); GLOMERULAR FILTRATION RATE > 60.0 (>45)
== END ==
LOC: M LAB 09:46
PROVIDERS: ATTEND Nurse Practitioner Family
DX: Z01.818 Encounter for other preprocedural examination (principal)

== ENCOUNTER → 2020-08-13 | Outpatient (CLI) | payer MEDICARE ==
[~2020-08-13] MED LIST changes: +ISOVUE-370 76% 100ML VIAL As Ordered ONE
--- NOTE | 2020-08-13 17:27 | REP ---
INDICATION: PULMONARY NODULE. COMPARISON: CT angio 07/31/2019. TECHNIQUE: Bolus of 75 mL Isovue 370 scanning through the chest with coronal and sagittal reconstructions provided. FINDINGS: On image 40 in the anterior segment right upper lobe subpleural region there is a 4 mm non calcified nodule unchanged from the study of 07/31/2019. Some minor dependent atelectatic change and sub pleural bullae seen in the superior segment of the right lower lobe. Some mild cylindrical bronchiectatic changes are noted bilaterally. I do not see other definite parenchymal nodules, lung masses, pleural effusion, pleural based mass or acute infiltrates. No apical pleural scarring noted. Heart size not enlarged. No pericardial thickening or effusion. There are some coronary artery calcifications. The aorta is without aneurysm or dissection and has some calcifications at the arch. Coronary calcifications also seen as before. No pathologic sized mediastinal, hilar, axillary or supraclavicular adenopathy. Thyroid lobes symmetric. No pneumothorax or pneumomediastinum. The bone windows show the sternum, manubrium, medial clavicles, portions of scapula and humerus included as well as ribs without any acute fracture or focal lesion. Bony thoracic spine shows no compression deformity or destructive lesion. No kyphosis or scoliosis. In the upper abdomen there is slight elevation of the right diaphragm. May be fatty liver change. No focal hepatic lesion or biliary dilatation. Gallbladder without calcified stone or mass. Visualized pancreas, adrenal glands and upper poles of kidneys intact. Stool and gas in the visualized segments of colon and small bowel loops unremarkable. No pancreatic lesion identified. No adenopathy. The aorta without aneurysm or dissection in the visible abdominal portion. IMPRESSION: 1. Stable CT findings with 4 mm subpleural nodule right upper lobe anterior segment. Given the size and just under 4 mm and stability for year no further follow-up needed for this nodule. 2. Other findings as described and stable from previous study. <Electronically signed by Edward Cuellar > 08/13/20 9999
== END ==
LOC: M RAD 15:16
PROVIDERS: ATTEND Nurse Practitioner Family
DX: R91.1 Solitary pulmonary nodule (principal); I25.10 Atherosclerotic heart disease of native coronary artery without angina pectoris; I70.0 Atherosclerosis of aorta
CPT/HCPCS: 71260; Q9967

== ENCOUNTER → 2020-08-29 | Outpatient (CLI) | payer MEDICARE ==
[~2020-08-29] MED LIST changes: -ISOVUE-370 76% 100ML VIAL As Ordered ONE
--- NOTE | 2020-08-29 16:35 | REP ---
INDICATION: ATH MARI ART OF EXT WITH CLAUDICATION TAWANDA LEGS COMPARISON: 06/13/2020. TECHNIQUE: Real time simms scale and Duplex Doppler evaluation of the bilateral lower extremity arterial vasculature using linear high frequency transducer. FINDINGS: Simms scale and duplex doppler images demonstrate no significant change in the right lower extremity arterial system. There are diffuse biphasic waveforms. There is again occlusion of the proximal anterior tibial artery with reconstitution distally. There is again approximately 2-1 stenosis of the distal superficial femoral artery. On the left triphasic waveforms are seen in the common femoral and profunda arteries. Monophasic waveforms are seen distal to that. There is new occlusion of the mid left superficial femoral artery. There is reconstitution of the distal SFA. There is about 3-1 stenosis of the left popliteal artery. There is occlusion of the left anterior tibial artery approximately 1 cm from its origin. This finding was present on the prior study. Diffuse severe plaquing is seen bilaterally. JEFFERSON right 0.7 and left 0.2. Peak systolic velocities (cm/sec) Distal abdominal aorta: 128 Common iliac artery: Right 176; left 182 External iliac artery: Right 149; left 241 Common femoral artery: Right 163; Left 336 Profunda femoris: Right 150; Left 247 SFA (proximal): Right 135; Left 99 SFA (mid): Right 137; Left occluded SFA (distal): Right 11/28/2023; Left 14 Popliteal artery: Right 71; Left 107 LORENZA (prox.): Right 46/occluded; Left occluded Tibioperoneal trunk: Right 33; Left 63 LAMP SHADE MAKER (prox.): Right 45; Left 38 LAMP SHADE MAKER (distal): Right 70; Left 9 LORENZA (distal): Right 23; Left occluded IMPRESSION: Severe diffuse plaquing bilaterally. No change on the right side, with occlusion again noted of proximal anterior tibial artery and reconstitution of the distal aspect. There is again approximately 2-1 stenosis of the distal right SFA. On the left there is new occlusion of the mid left SFA with reconstitution of the distal SFA. There is approximately 3-1 stenosis of the popliteal artery. As seen on prior study, there is occlusion of the left anterior tibial artery. <Electronically signed by Carl Simms > 08/29/20 [id number]
== END ==
LOC: M RAD 08:52
PROVIDERS: ATTEND Physician Assistant
DX: I70.213 Atherosclerosis of native arteries of extremities with intermittent claudication, bilateral legs (principal); Z87.891 Personal history of nicotine dependence; Z95.828 Presence of other vascular implants and grafts

== ENCOUNTER → 2020-09-10 | Outpatient (CLI) | payer MEDICARE ==
[~2020-09-10] MED LIST changes: +ATOR80TA59 PO; +ISOVUE-300 61% 50ML VIAL As Ordered ONE; +LIDOCAINE 1% MDV 20ML VIAL As Ordered ONE; +MIDAZOLAM INJ 2MG/2ML VIAL (J2250 PER 1MG) As Ordered ONE; +PLAV1TAB2 PO; +fentaNYL 100 MCG/2 ML INJECTION (J3010) As Ordered ONE
[2020-09-10 07:14] LABS: HEMOGLOBIN 13.7 g/dl (12.0-15.5); MEAN CORPUSCULAR HEMOGLOBIN 30.7 pg (27.0-33.0); MEAN CORPUSCULAR HGB CONC 33.4 g/dl (32.0-36.5); MEAN CORPUSCULAR VOLUME 91.9 fl (80.0-96.0); PLATELET COUNT, AUTOMATED 319 10^3/uL (150-450); RED BLOOD COUNT 4.46 10^6/uL (4.00-5.40)
[2020-09-10 07:36] LABS: BLOOD UREA NITROGEN 20 MG/DL (7-18); CALCIUM LEVEL 9.7 MG/DL (8.8-10.2); CARBON DIOXIDE LEVEL 30 MEQ/L (21-32); CHLORIDE LEVEL 103 MEQ/L (98-107); CREATININE FOR GFR 0.79 MG/DL (0.55-1.30); GLOMERULAR FILTRATION RATE > 60.0 (>45); GLUCOSE, FASTING 104 MG/DL (70-100); POTASSIUM SERUM 3.8 MEQ/L (3.5-5.1); SODIUM LEVEL 139 MEQ/L (136-145)
--- NOTE | 2020-09-10 09:06 | ROOPDOC ---
[facility] Report Of Operation Report of Operation DATE OF PROCEDURE: 09/10/20 PREPROCEDURE DIAGNOSES: Atherosclerosis of the [place] arteries with claudication and rest pain and left lower extremity POSTPROCEDURE DIAGNOSES: Same PROCEDURE: 1. Ultrasound-guided access right common femoral artery 2. Aortoiliofemoral arteriogram 3. Selection left common femoral artery and superficial femoral artery and left lower extremity runoff 4. Cross occlusion left superficial femoral artery and angioplasty with 5 x 200 Hollywood balloon 5. Attempt to cross chronic total occlusion anterior tibial artery, aborted 6. Selection left popliteal artery and tibial runoff 7. Mynx closure right common femoral artery SURGEON: Katya Mansfield MD ANESTHESIA: Lidocaine 8 mL local anesthesia. Moderate intravenous conscious sedation was supervised by Dr. Mansfield. The patient was independently monitored by registered nurse assigned department of radiology using automated blood pressure, EKG, and pulse oximetry. The detailed sedation record is primarily stored in the hospital information system. The following is a brief sedation record: Start time 07:58, stop time 08:28, Versed 1.5 mg IV, fentanyl 50 g IV, heparin 4000 units IV. INDICATION FOR PROCEDURE: This is a very pleasant 65-year-old patient with a long-standing history of peripheral vascular disease, currently a nonsmoker, who has had worsening claudication progressing to rest pain in the left leg despite intervention with revascularization in April of last year. Risks benefits and alternatives to an arteriogram with potential intervention were explained to the patient. She is agreeable to proceed. Informed consent was obtained. INTERPRETATION: 1. The distal aorta, common iliac arteries, hypogastric arteries, and external iliac arteries are patent. There diminutive in size with mild ectasia, but no flow-limiting stenoses are noted. 2. The left common femoral artery is patent with excellent flow and the profunda. There are stents present throughout the left SFA from the origin to the proximal popliteal artery. These are almost diffusely nearly occluded with intimal hyperplasia. There is some trickle flow through the stents. The majority of the flow to the left popliteal arteries from collaterals from the profunda. The left popliteal artery distal to the stent is patent but diminutive in size. There is excellent flow through the tibioperoneal trunk and the last posterior tibial artery and peroneal artery. The anterior tibial artery occludes near the origin with a few wispy collaterals but is otherwise occluded in its entire length and does not reconstitute. 3. After angioplasty along the length of the left SFA stents, there is luminal flow through to the popliteal artery. No embolization extravasation or dissection noted. 4. With selection of the popliteal artery, we noted excellent flow still through the posterior tibial and peroneal artery to the foot, no extravasation after attempting to cross the anterior tibial artery. REPORT OF OPERATION: Patient was brought to the angiographic suite in stable condition. Her bilateral groins were prepped and draped in a sterile fashion. A timeout was performed. Sedation was administered without complication. Local anesthesia was administered to the skin and subcutaneous tissue over the right common femoral artery. A microneedle was used to access the artery under ultrasound guidance. A wire was passed through this access needle was removed. A 4 Irish sheath was placed and flushed with saline. A Glidewire and flushing catheter were advanced into the distal aorta. Aortoiliofemoral arteriograms were performed. Please see interpretation above. We went up and over the bifurcation selected the left common femoral and superficial femoral arteries and a left lower extremity runoff was performed, please see interpretation above. We then advanced a Glidewire carefully through the SFA under fluoroscopic guidance. The sheath was exchanged for 6 x 45 cm destination sheath and flushed with saline. A 5 x 200 Hollywood balloon was used angioplasty along the length of the SFA and proximal popliteal artery stents. Three-minute inflations were performed. Foll owing this, there was luminal flow through the stents with much for more rapid flow to the distal foot, however the intimal hyperplasia is still present and is likely to reocclude. We then attempted to cross into the anterior tibial artery to see if we could open outflow. Unfortunately, despite her best efforts, we were not able to cross the vessel. We did select the popliteal artery and perform a final tibial runoff. There is still excellent flow through the peroneal and posterior tibial artery and no extravasation after attempts to cross into the anterior tibial artery. We then exchanged sheath for short 6 Irish sheath and flushed the sheath with saline. Mynx closure device was deployed under fluoroscopic guidance. Pressure was held and good hemostasis was noted. Sterile dressings were applied and the patient was taken to recovery in stable condition. She tolerated the procedure and the sedation well. ESTIMATED BLOOD LOSS: Approximately 4 mL. COMPLICATIONS: None PLAN: It is okay to resume home diet and medications including Plavix. We will obtain a vein mapping of the lower extremities to see if the patient has suitable vein for bypass. I do not anticipate that the angioplasty we did today will be long lasting due to severe intimal hyperplasia. It may buy her some time and get her out of rest pain, but eventually I think she needs a more permanent solution, and we will consider a left femoral to below-knee popliteal bypass. We will see her in clinic to check her right groin access site and discuss options for bypass. We appreciate the opportunity to participate in the care of this patient. KATYA MANSFIELD MD Sep 10, 2020 09:06
[2020-09-10 12:35] VITALS: BP 128/60
--- NOTE | 2020-09-10 12:39 | REP ---
INDICATION: GSV/LSVmapping RE:PVD,rest pain;preop eval for Lfempopbypass. Vein mapping study. COMPARISON: None. TECHNIQUE: Bilateral lower extremity Doppler venous sonography vein mapping exam. FINDINGS: The deep veins are anechoic and fully compressible from the groin to the popliteal fossa in the left and right lower extremity. Color flow imaging is homogeneous. Spectral Doppler interrogation demonstrates intact respiratory variation in flow and normal manual augmentation of flow. There is no evidence of deep vein thrombosis. Both greater saphenous veins display a collateral vein coursing superficially from the mid greater saphenous vein to the distal thigh. On the right the greater saphenous vein measures 6.5 mm in AP dimension proximally, 5 mm at mid thigh, 5 mm above the knee, 4 mm at the knee, and 3 mm in the proximal calf. The right small saphenous vein measures 3.8 mm in proximally and 1.7 mm in diameter at mid calf. The left greater saphenous vein measures 6.5 mm proximally, 6.1 and 5.1 mm in the proximal thigh, 4 mm in the distal thigh and at the knee, and 3.6 mm in the proximal calf. The left lesser saphenous vein measures 3.8 mm proximally and 3.1 mm at mid calf level. IMPRESSION: Negative bilateral lower extremity duplex venous ultrasound. No evidence of deep vein thrombosis. Greater saphenous and lesser saphenous vein diameters as above. There is a collateral extending from the mid greater saphenous vein bilaterally. <Electronically signed by Ever Steen > 09/10/20 [id number]
== END ==
LOC: M IRPRO 06:17
PROVIDERS: ATTEND Surgery Vascular Surgery
DX: I70.213 Atherosclerosis of native arteries of extremities with intermittent claudication, bilateral legs (principal); I70.222 Atherosclerosis of native arteries of extremities with rest pain, left leg; I70.92 Chronic total occlusion of artery of the extremities; I65.23 Occlusion and stenosis of bilateral carotid arteries; I10 Essential (primary) hypertension; H90.0 Conductive hearing loss, bilateral; J31.0 Chronic rhinitis; J34.2 Deviated nasal septum; Z79.899 Other long term (current) drug therapy; Z87.891 Personal history of nicotine dependence; Z88.6 Allergy status to analgesic agent
CPT/HCPCS: 37224; 75710; 75774; 80048; 85027; 93970; 99152; 99153; C1725; C1760; C1769; C1887; C1894; G0269; J1644; J2250; J3010; Q9967

== ENCOUNTER → 2020-10-22 | Outpatient (CLI) | payer MEDICARE ==
[~2020-10-22] MED LIST changes: +D31000TA2 PO; -ISOVUE-300 61% 50ML VIAL As Ordered ONE; -LIDOCAINE 1% MDV 20ML VIAL As Ordered ONE; -MIDAZOLAM INJ 2MG/2ML VIAL (J2250 PER 1MG) As Ordered ONE; +SM G150T PO; -fentaNYL 100 MCG/2 ML INJECTION (J3010) As Ordered ONE
[2020-10-22 16:28] LABS: APPEARANCE, URINE HAZY (CLEAR); BACTERIA, URINE AUTO NEGATIVE (NEGATIVE); BILIRUBIN, URINE AUTO NEGATIVE (NEGATIVE); BLOOD, URINE BLOOD NEGATIVE (NEGATIVE); COLOR, URINE YELLOW (YELLOW); GLUCOSE, URINE (UA) AUTO NEGATIVE (NEGATIVE); KETONE, URINE AUTO NEGATIVE (NEGATIVE); LEUKOCYTE ESTERASE, URINE AUTO 1+ (NEGATIVE); MUCUS, URINE SMALL (NEGATIVE); NITRITE, URINE AUTO NEGATIVE (NEGATIVE); PROTEIN, URINE AUTO NEGATIVE (NEGATIVE); RBC, URINE AUTO 1 /HPF (0-3); SPECIFIC GRAVITY URINE AUTO 1.016 (1.002-1.035); SQUAMOUS EPITHELIAL CELL UR AU 3 /HPF (0-6); WBC, URINE AUTO 3 /HPF (0-3)
[2020-10-22 16:29] LABS: BASO # 0.1 10^3/uL (0.0-0.2); BASO % 0.7 % (0.0-1.0); EOS # 0.3 10^3/uL (0.0-0.5); EOS % 3.5 % (0.0-3.0); HEMATOCRIT 39.8 % (36.0-47.0); HEMOGLOBIN 12.7 g/dl (12.0-15.5); LYMPH # 3.4 10^3/uL (1.5-5.0); LYMPH % 35.2 % (24.0-44.0); MEAN CORPUSCULAR HEMOGLOBIN 29.9 pg (27.0-33.0); MEAN CORPUSCULAR HGB CONC 31.9 g/dl (32.0-36.5); MEAN CORPUSCULAR VOLUME 93.6 fl (80.0-96.0); MONO # 0.7 10^3/uL (0.0-0.8); MONO % 6.8 % (2.0-8.0); NEUTROPHILS # 5.2 10^3/uL (1.5-8.5); NEUTROPHILS % 53.5 % (36.0-66.0); PLATELET COUNT, AUTOMATED 277 10^3/uL (150-450); RED BLOOD COUNT 4.25 10^6/uL (4.00-5.40); WHITE BLOOD COUNT 9.7 10^3/uL (4.0-10.0)
[2020-10-22 16:41] LABS: PROTHROMBIN TIME 13.4 SECONDS (12.5-14.3)
[2020-10-22 16:42] LABS: PARTIAL THROMBOPLASTIN TIME 32.4 SECONDS (24.2-38.5)
[2020-10-22 16:56] LABS: BLOOD UREA NITROGEN 24 MG/DL (7-18); CALCIUM LEVEL 9.7 MG/DL (8.8-10.2); CARBON DIOXIDE LEVEL 31 MEQ/L (21-32); CHLORIDE LEVEL 101 MEQ/L (98-107); CREATININE FOR GFR 0.97 MG/DL (0.55-1.30); GLOMERULAR FILTRATION RATE > 60.0 (>45); GLUCOSE, FASTING 77 MG/DL (70-100); POTASSIUM SERUM 4.3 MEQ/L (3.5-5.1); SODIUM LEVEL 138 MEQ/L (136-145)
== END ==
LOC: M LAB 14:47
PROVIDERS: ATTEND Nurse Practitioner Family
DX: Z01.818 Encounter for other preprocedural examination (principal); Z79.899 Other long term (current) drug therapy

== ENCOUNTER → 2020-10-27 | Outpatient (CLI) | payer MEDICARE | LOC: M LABSMTC 10:39 | PROVIDERS: ATTEND Anesthesiology | DX: Z01.812 Encounter for preprocedural laboratory examination (principal); Z11.52 Encounter for screening for COVID-19 ==

== ENCOUNTER 2020-11-01 06:02 | Inpatient (IN) | payer MEDICARE ==
--- NOTE | 2020-10-11 13:07 | HPEPDOC ---
[facility] Medical History & Physical Date of Admission November 01, 2020 Date of Service: November 01, 2020 History and Physical Vascular surgery. Dr. Mansfield HISTORY OF PRESENT ILLNESS: Patient is a 65-year-old female with a long-standing history of peripheral vascular disease and revascularizations, now with severe in-stent stenosis due to intimal hyperplasia resistant to endovascular options for revascularization. The patient has worsening claudication, lifestyle limiting, in the left lower extremity as well as progression to rest pain at night. She hangs her foot off the bed in order to get some relief. Dr. Mansfield has discussed the risks benefits and alternatives to a left femoral endarterectomy and a left femoral to below-knee popliteal bypass. The patient has had a greater saphenous vein mapping, and she has a suitable left greater saphenous vein for bypass. She is agreeable to proceed with a left femoral endarterectomy, left femoral to below-knee bypass with in situ vein. Dr. Mansfield discussed with her that if for some reason the vein is not suitable, we would proceed with a PTFE graft, but this is only a last resort backup plan. She is agreeable to this as well. PAST MEDICAL HISTORY: Hypertension Dyslipidemia Anxiety Depression Chronic rhinitis/eustachian tube dysfunction PAD OAB PAST SURGICAL HISTORY: D&C Partial hysterectomy Angiogram lower extremities SOCIAL HISTORY: Former smoker FAMILY HISTORY: Hypertension ALLERGIES: Please see below. REVIEW OF SYSTEMS: As noted in HPI otherwise 10 point review of systems unremarkable. HOME MEDICATIONS: Please see below. PHYSICAL EXAMINATION: Const: Appears medically stable. Head/Face: Normal on inspection. ENMT: Tympanic membranes: intact. External nose WNL. Neck: Supple, no carotid bruits present Resp: No wheezing. Clear to auscultation bilaterally. CV: Rate is regular. Rhythm is regular. Abdomen: Bowel sounds are positive. Abdomen is soft, nontender, and nondistended. Lymph: No palpable or visible regional lymphadenopathy. Musculo:Gait steady, distal pulses not palpable. DP PT signals biphasic on the right, monophasic on the left PT and difficult to Doppler a signal on the left DP. Feet are warm, right greater than left. No ulcers or wounds noted. Skin:No rashes or lesions Neuro:Alert and oriented x3, moves all extremities equally, no focal neurologic deficits noted. 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 Mansfield. Informed consent is obtained and placed with the chart. Transfusion consent is obtained and placed with the chart. Cardiology clearance and medical clearance requested. Hold Plavix 5 days prior to surgery. Continue statin daily. IV fluids as per anesthesia Admission labs to include CBC, BMP, INR, PTT, type and screen. Ancef 2 g IV preoperatively. Vital Signs Admission vital signs pending. Laboratory Data Labs 24H Admission labs pending Home Medications Scheduled (Garlic) 1,000 Mg Cap, 1,000 MG PO DAILY Atorvastatin Calcium (Atorvastatin Calcium) 80 Mg Tablet, 1 TAB PO DAILY Cholecalciferol (Vitamin D3) (Vitamin D3) 2,000 Unit Tab, 2,000 UNIT PO DAILY Citalopram Hydrobromide (Citalopram HBr) 20 Mg Tab, 20 MG PO DAILY Clopidogrel Bisulfate (Plavix) 75 Mg Tablet, 75 MG PO DAILY Cyanocobalamin (Vitamin B-12) (Vitamin B-12) 500 Mcg Tab, 500 MCG PO DAILY Hydrochlorothiazide (Hydrochlorothiazide) 25 Mg Tab, 25 MG PO DAILY Lisinopril (Lisinopril) 20 Mg Tab, 20 MG PO DAILY Oxybutynin Chloride (Oxybutynin Chloride ER) 15 Mg Tab, 15 MG PO DAILY Scheduled PRN Ibuprofen (Advil) 200 Mg Tab, 600 MG PO Q6HP PRN for PAIN Allergies Coded Allergies: naproxen (Verified Allergy, Unknown, 07/31/19) A-FIB/CHADSVASC A-FIB History Current/History of A-Fib/PAF?: No Theodora Reyes Oct 11, 2020 13:07
[~2020-11-01] VITALS: Ht 162.6 cm; Wt 76.2 kg
[~2020-11-01 06:02] MED LIST changes: +LR 1,000 ML IV ONE; +ceFAZolin SOD 2 GM in IV 1 EA IV ONE
[2020-11-01] MEDS ORDERED: ACET-683 PO (06:44)
[2020-11-01 06:51] LABS: HEMATOCRIT 40.7 % (36.0-47.0); HEMOGLOBIN 13.8 g/dl (12.0-15.5); MEAN CORPUSCULAR HEMOGLOBIN 31.4 pg (27.0-33.0); MEAN CORPUSCULAR HGB CONC 33.9 g/dl (32.0-36.5); MEAN CORPUSCULAR VOLUME 92.5 fl (80.0-96.0); PLATELET COUNT, AUTOMATED 261 10^3/uL (150-450); WHITE BLOOD COUNT 7.9 10^3/uL (4.0-10.0)
[2020-11-01 07:04] LABS: INR 0.95; PROTHROMBIN TIME 12.9 SECONDS (12.5-14.3)
[2020-11-01 07:05] LABS: PARTIAL THROMBOPLASTIN TIME 27.6 SECONDS (24.2-38.5)
[2020-11-01] MEDS ORDERED: THROMBIN SOLN 20,000 UNITS KIT As Ordered ONE (07:11)
[2020-11-01] MEDS ORDERED: ISOVUE-300 61% 50ML VIAL As Ordered ONE (07:11)
[2020-11-01] MEDS ORDERED: HEPARIN SOD (PORCINE) 5000UNITS/ML 1ML VIAL/SYRINGE As Ordered ONE ×3 (07:12→09:46)
[2020-11-01] MEDS ORDERED: BUPIVACAINE/EPIN 0.5% 30 ML VIAL As Ordered ONE (07:12)
[2020-11-01 07:15] LABS: BLOOD UREA NITROGEN 15 MG/DL (7-18); CALCIUM LEVEL 9.5 MG/DL (8.8-10.2); CARBON DIOXIDE LEVEL 33 MEQ/L (21-32); CHLORIDE LEVEL 101 MEQ/L (98-107); CREATININE FOR GFR 0.71 MG/DL (0.55-1.30); GLOMERULAR FILTRATION RATE > 60.0 (>45); GLUCOSE, FASTING 93 MG/DL (70-100); POTASSIUM SERUM 4.4 MEQ/L (3.5-5.1); SODIUM LEVEL 138 MEQ/L (136-145)
[2020-11-01] MEDS ORDERED: SUGAMMADEX SODIUM 500 MG/5 ML VIAL (BRIDION) As Ordered ONE (07:17)
[2020-11-01] MEDS ORDERED: LIDOCAINE 2% 100MG/5ML SDV (FOR ANES.) As Ordered ONE (07:17)
[2020-11-01] MEDS ORDERED: ONDANSETRON 4MG/2ML VIAL As Ordered ONE (07:17)
[2020-11-01] MEDS ORDERED: ACETAMINOPHEN 1000MG 100ML IV BTL (OFIRMEV) (J0131 PER 10MG) As Ordered ONE (07:17)
[2020-11-01] MEDS ORDERED: ROCURONIUM BROMIDE 50 MG/5 ML VIAL As Ordered ONE ×3 (07:17→09:42)
[2020-11-01] MEDS ORDERED: MIDAZOLAM INJ 2MG/2ML VIAL (J2250 PER 1MG) As Ordered ONE (07:17)
[2020-11-01] MEDS ORDERED: propofoL 200 MG/20 ML VIAL As Ordered ONE (07:17)
[2020-11-01] MEDS ORDERED: dexameTHASONE 4 MG/ML 1ML VIAL (J1100 PER 1MG) As Ordered ONE (07:17)
[2020-11-01] MEDS ORDERED: fentaNYL 100 MCG/2 ML INJECTION (J3010) As Ordered ONE ×2 (07:17→08:33)
[2020-11-01] MEDS ORDERED: LIDOCAINE 5% OINT 30GM TUBE As Ordered ONE (07:52)
[2020-11-01] MEDS ORDERED: PHENYLEPHRINE 10MG/ML 1ML VIAL (J2370 PER 1) As Ordered ONE (07:57)
[2020-11-01] MEDS ORDERED: PHENYLephrine 500MCG 5ML (100MCG/ML) SYRINGE As Ordered ONE (07:58)
[2020-11-01] MEDS ORDERED: HYDROmorphone HCL 2 MG/ML 1ML VIAL (J1170) As Ordered ONE (09:29)
[2020-11-01] MEDS ORDERED: ceFAZolin 2 GM/D5W 50 ML IV BAG (J0690 PER 500MG) As Ordered ONE (09:46)
[2020-11-01] MEDS ORDERED: HYDROmorphone 2 MG TAB PO PRN (15:05)
[2020-11-01] MEDS ORDERED: PERCOCET 5MG/325MG TAB PO PRN (15:05)
--- NOTE | 2020-11-01 15:07 | ROOPDOC ---
[facility] Report Of Operation Report of Operation DATE OF PROCEDURE: 11/01/20 PREPROCEDURE DIAGNOSES: Atherosclerosis of the [place] arteries with lifestyle limiting claudication POSTPROCEDURE DIAGNOSES: Same PROCEDURE: 1. Left femoral endarterectomy with Xenosure patch angioplasty 2. Left femoral to below-knee popliteal bypass with in situ vein 3. Left lower extremity arteriogram SURGEON: Georgina Mansfield MD ANESTHESIA: Gen. and local INDICATION FOR PROCEDURE: This a very pleasant 65-year-old patient with a complicated history of severe left lower extremity atherosclerosis of the [place] arteries as well as rapid accumulation of intimal hyperplasia within her left superficial femoral artery stents that is been resistant to repeat procedures and angioplasty. She subsequently has developed increasing claudication in the left lower extremity. She also has bulky calcified plaque in the common femoral artery that is obstructing inflow to the leg as well. Risks benefits and altern atives to a left lower extremity femoral endarterectomy and left femoral to below-knee popliteal bypass with in situ vein were explained to the patient. I discussed with the patient preop that she is high risk for any vascular procedures because of her propensity to develop intimal hyperplasia, which can cause fairly early failure of revascularization. However, I'm hopeful that of femoral endarterectomy will dramatically improve her inflow, which may be enough to get her out of claudication on her own, even if she fails her bypass. We had a lengthy discussion and she understands that this is going to be difficult surgery and there will be a bit of recovery involved, that there are no guarantees for the outcomes. Nevertheless, I do feel she has suitable vein and that we should proceed, and there is a good chance of bypass will work better than the stents. She is agreeable to proceed. Informed consent was obtained. REPORT OF OPERATION: Patient was brought to the OR in stable condition. Antibiotics and anesthesia were administered without convocation. Her bilateral groins and left lower extremity were prepped and draped in a sterile fashion. A timeout was performed. An oblique incision was made over the left inguinal ligament and carried down through subcutaneous tissue with Bovie cautery. Bridging veins were suture ligated and divided we continued down through the fascia to the femoral sheath. This was opened longitudinally to expose the femoral vessels. Vessels were placed around the circumflex vessels, the sup erficial femoral artery, and the profunda. We then identified the femoral vein and skeletonized the saphenous vein. Ultrasound was used to map the greater saphenous vein on the scan and nirmal large branches. A longitudinal incision was made over the medial calf just anterior to the greater saphenous vein which was worked on the skin. We then carried this incision down to the subcutaneous tissue carefully to make sure we do not enter the vein. We continued her dissection down to the fascia which was opened longitudinally. The muscle was retracted posteriorly to expose the popliteal vein and artery. The popliteal artery was skeletonized proximally and distally within the incision. It was much more calcified than I anticipated based on her arteriogram images, but I was able to find a soft spot for bypass on the artery in the mid distal popliteal. Vesseloops were placed proximally and distally. We then made small incisions over the saphenous vein in the areas of large branches. The patient is obese and it was a little bit challenging to dissected down to the vein and identified within the subcutaneous tissue, but we were able to identify several large branches which were clipped. We then gave heparin and allowed this to circulate. A clamp was placed on the proximal common femoral artery above the area of heavy is plaque. We secured the Vesseloops distally and a longitudinal arteriotomy was made. Near occlusive heavily calcified plaque was carefully removed from the common femoral artery, as well as significant intimal hyperplasia that was present at the origin of the profunda in the SFA. We continued the endarterectomy until there was no loose intima or debris within the common femoral artery. We then anastomosed a xenosure patch in a running fashion with hemostatic Prolene suture. Before the final sutures are placed we flushed the inflow and outflow 8 and irrigated with heparinized saline. The final sutures are placed in good hemostasis was noted. We restored flow to the leg. Next, the proximal aspect of the greater saphenous vein was mobilized. Branches were suture ligated and divided. A clamp was placed on the common femoral vein. Prolene sutures were used and a mattress fashion to approximate the edges of the common femoral vein beneath the clamp. An 11 blade knife was then used to excise the greater saphenous vein from the femoral vein and a bulldog clamp was placed. We then removed the clamp from the femoral vein and oversewed the mattress sutures with the Prolene suture for good hemostasis. Flow was still present within the femoral vein. Next we inverted the proximal greater saphenous vein and lysed the proximal valves with a pot scissor. Next, we dissected out the greater saphenous vein within our knee incision. Branches were suture ligated and divided. There was a large branch point that would be suitable to open to make a larger patch for anastomosis and this was done. We then passed a valvulotome up to but not through the anastomosis and pulled the smaller of the 2 valvulotome's through the vein multiple passes. We injected saline prior to doing so. We then replaced the valvulotome with a larger valvulotome and passed this through several times to lyse the residual valves. We then injected contrast through the vein to identify branches that we had not yet clipped. These were marked on the skin and dissected out and clipped. Several contrast images were obtained with fluoroscopy until all the branches were clipped. We still noted contrast to be lagging in the midportion of the vein, and #3 Saige balloon was passed through this and retracted and no thrombus was expelled but there was excellent flow through the vein following this with rapid flow up to the bulldog clamp that we placed. We flushed this with heparinized saline. Additional heparin was given throughout the case to maintain appropriate anticoagulation. We then secured the Vesseloops on the popliteal artery and an arteriotomy was made. The vein was anastomosed the artery and an end-to-side fashion with 6-0 Prolene suture. Before the final sutures are placed we flushed the inflow through the vein and the inflow and outflow through the artery. Surprisingly was used to irrigate in the final sutures are placed. Good hemostasis was noted. We had excellent flow through the vein bypass on Doppler. There was also good flow in the profunda in the proximal SFA. We then irrigated all incisions with normal saline. The deep tissues were approximated with multiple layers of 2-0 Vicryl suture taking care not to restrict the graft. We approximated her deep dermal layers with interrupted 4-0 Vicryl sutures. Nylon mattress sutures were used to approximate the skin edges and skin panda were used as final closure on the incisions. At the groin, we close femoral sheath with 2-0 Vicryl suture. We closed the fascia in 4 layers with running 2-0 Vicryl suture. The deep dermal layer was approximated with 4-0 Vicryl suture. The skin was approximated with nylon mattress sutures and skin panda were used between these as a final skin closure. 4 x 4's and Tegaderms were placed as final dressings. The patient was then allowed to awaken from anesthesia was taken to recovery in stable condition. She had good flow in her bypass and a warm foot with good signals. She tolerated the anesthesia and the procedure well. SPECIMEN: Left femoral plaque sent for pathology ESTIMATED BLOOD LOSS: Approximately 100 mL. COMPLICATIONS: None. PLAN: Our plan is for the patient to be admitted to the hospital service and we will continue to follow along for her vascular care. We encourage high-protein diet to help with wound healing. The patient has several incisions and she is obese, and wound healing can be challenging. We will continue to encourage good nutrition, as well as teach her appropriate wound care while she is inpatient. It will be imperative that she continue this wound care at home. Otherwise, healing can be very challenging. We will continue to follow her perfusion as well. We appreciate the hospitalist assisting us with her medical management and we appreciate the opportunity to participate in the care of this patient. GEORGINA MANSFIELD MD November 01, 2020 15:07
[2020-11-01] MEDS ORDERED: ONDANSETRON 4MG/2ML VIAL IV PRN (15:50)
[2020-11-01] MEDS ORDERED: fentaNYL 100 MCG/2 ML INJECTION (J3010) IV PRN (15:50)
[2020-11-01] MEDS ORDERED: HYDROMORPHONE HCL 0.5 MG/ 0.5 ML SYRINGE (J1170 PER 1) IV PRN (15:50)
[2020-11-01] MEDS ORDERED: MOM 30ML SUSPENSION UDC PO PRN (15:50)
[2020-11-01] MEDS ORDERED: oxyCODONE 5MG TAB PO PRN (15:50)
[2020-11-01] MEDS ORDERED: ACETAMINOPHEN TAB 650MG DOSE (2X325MG) PO PRN (15:50)
[2020-11-01] MEDS ORDERED: LR 1,000 ML IV SCH (15:50)
--- NOTE | 2020-11-01 16:25 | HPEPDOC ---
[facility] Medical History & Physical Date of Admission November 01, 2020 Date of Service: November 01, 2020 History and Physical Chief complaint: Who presented to [facility] for an elective vascular procedure History of present illness: Patient is a 65-year-old female who presented to [facility] for an elective vascular procedure. Patient has had a history of peripheral vascular disease with revascularization and stenting with in-stent stenosis. She has been experiencing leg claudication that has been ongoing problem recently. has been scheduled for elective revascularization procedure via left femoral endarterectomy and left femoral below the knee popliteal bypass with in situ vein. Patient has received medical clearance from her primary care provider Lauren Hodge and her obstetric assistant Dr. Jeff. Hospitalist service was called post procedure for admission to their service and medical management. Patient still had effects of anesthesia and was able to an swer a few questions. She denied any chest pain, shortness of breath, abdominal pain or recent fevers or chills. Patient reports a mild headache and reports that she does have a slight cough. Past Medical History: HTN Nuclear stress test (09/20/2019) with normal perfusion Peripheral arterial disease with claudication DLP Depression / Anxiety Osteoarthritis Past Surgical History: Dilation and curettage Partial hysterectomy Multiple angiographies of lower extremities with stenting Allergies: See below Medications: See below Family History: - Family history of hypertension Social History: - Patient reports that she quit smoking one year prior - Denies recent travel or sick contacts Review of Systems: 10 point review of systems complete, all negative otherwise stated in HPI Physical exam: - Vitals: BP [144/63], HR [88], RR [20], Sat [93%RA], Temp [97.7F] - General: Lying in bed, No acute distress, Drowsy - HEENT: NC, AT, PERRLA - CVS: RRR, +S1S2 - Lungs: Fair air entry bilaterally, No appreciable wheezing / rales / rhonchi - Abdomen: Soft, Non-distended, Non-tender - Extremities: No lower extremity edema, No calf tenderness - Neuro: No focal motor or sensory deficit - Skin: No visible rashes Labs: See below Imaging: See below EKG: See below Assessment and Plan: Peripheral arterial disease with claudication - Patient presented to [facility] for an elective vascular procedure - Has been experiencing claudication and history of peripheral vascular disease with revascularization and severe in-stent stenosis - Patient is status post left femoral endarterectomy with left femoral below the knee popliteal bypass with in situ vein with Dr. Mansfield on 11/01/2020 - Plavix to be resumed on 11/02/2020 - Will have activity out of bed tomorrow / pain control HTN - Nuclear stress test (09/20/2019) with normal perfusion - BP well controlled - c/w HCTZ and Lisinopril DLP - c/w Atorvastatin Depression / Anxiety - c/w Citalopram Overactive bladder - c/w Oxybutynin Osteoarthritis - c/w Pain control [Percocet] Vitamin D deficiency - c/w Supplementation DVT prophylaxis - Will start Heparin Vital Signs Vital Signs Date Time Temp Pulse Resp B/P (MAP) Pulse Ox O2 Delivery O2 Flow Rate FiO2 11/01/20 15:30 88 20 144/63 (90) 93 Non-Rebreather 12.0 11/01/20 15:12 97.7 Laboratory Data Labs 24H Laboratory Tests 2 11/01/20 06:28: Nucleated Red Blood Cells % (auto) 0.0, Prothrombin Time 12.9, Prothromb Time International Ratio 0.95, Activated Partial Thromboplast Time 27.6, Anion Gap 4L, Glomerular Filtration Rate > 60.0, Calcium Level 9.5 CBC/BMP Laboratory Tests 11/01/20 06:28 Home Medications Scheduled Cholecalciferol (Vitamin D3) (Vitamin D3) 1,000 Unit Tablet, 2,000 UNITS PO DAILY Citalopram Hydrobromide (Citalopram HBr) 20 Mg Tab, 20 MG PO DAILY Clopidogrel Bisulfate (Plavix) 75 Mg Tablet, 75 MG PO DAILY Cyanocobalamin (Vitamin B-12) (Vitamin B-12) 500 Mcg Tab, 500 MCG PO DAILY Hydrochlorothiazide (Hydrochlorothiazide) 25 Mg Tab, 25 MG PO DAILY Lisinopril (Lisinopril) 20 Mg Tab, 20 MG PO DAILY Oxybutynin Chloride (Oxybutynin Chloride ER) 15 Mg Tab, 15 MG PO DAILY Scheduled PRN Acetaminophen (Acetaminophen) 500 Mg Tablet, 500 MG PO Q6HP PRN for PAIN Ibuprofen (Advil) 200 Mg Tab, 600 MG PO Q6HP PRN for PAIN Allergies Coded Allergies: naproxen (Verified Allergy, Unknown, itching, 10/17/20) ALEC RIVERA MD November 01, 2020 16:25
[2020-11-01 16:50] VITALS: BP 126/68
[2020-11-01 17:20] VITALS: BP 128/70
[2020-11-01] MEDS: ONDANSETRON 4MG/2ML VIAL IV SCH ×2 (17:22→21:55)
[2020-11-01 18:20] VITALS: BP 127/70
[2020-11-01 19:20] VITALS: BP 121/68
[2020-11-01 20:20] VITALS: BP 107/53
[2020-11-01 21:20] VITALS: BP 118/58
[2020-11-01] MEDS: HEPARIN SOD (PORCINE) 5000UNITS/ML 1ML VIAL/SYRINGE SC SCH (21:45)
[2020-11-01] MEDS: DOCUSATE SODIUM 100MG CAPSULE PO SCH (21:45)
[2020-11-02 02:00] VITALS: BP 106/52
[2020-11-02] MEDS: ONDANSETRON 4MG/2ML VIAL IV SCH ×4 (03:17→21:55)
[2020-11-02] MEDS: HEPARIN SOD (PORCINE) 5000UNITS/ML 1ML VIAL/SYRINGE SC SCH ×3 (05:52→21:55)
[2020-11-02 06:00] VITALS: BP 128/54
[2020-11-02 06:40] LABS: BASO % 0.3 % (0.0-1.0); EOS % 0.3 % (0.0-3.0); HEMATOCRIT 31.3 % (36.0-47.0); LYMPH # 2.1 10^3/uL (1.5-5.0); LYMPH % 21.8 % (24.0-44.0); MEAN CORPUSCULAR HEMOGLOBIN 30.5 pg (27.0-33.0); MEAN CORPUSCULAR HGB CONC 32.9 g/dl (32.0-36.5); MEAN CORPUSCULAR VOLUME 92.6 fl (80.0-96.0); MONO # 0.7 10^3/uL (0.0-0.8); MONO % 7.6 % (2.0-8.0); NEUTROPHILS # 6.8 10^3/uL (1.5-8.5); NEUTROPHILS % 69.7 % (36.0-66.0); PLATELET COUNT, AUTOMATED 197 10^3/uL (150-450); RED BLOOD COUNT 3.38 10^6/uL (4.00-5.40); WHITE BLOOD COUNT 9.7 10^3/uL (4.0-10.0)
[2020-11-02 06:43] LABS: HEMOGLOBIN 10.3 g/dl (12.0-15.5)
[2020-11-02 06:58] LABS: BLOOD UREA NITROGEN 17 MG/DL (7-18); CALCIUM LEVEL 9.3 MG/DL (8.8-10.2); CARBON DIOXIDE LEVEL 30 MEQ/L (21-32); CHLORIDE LEVEL 101 MEQ/L (98-107); GLOMERULAR FILTRATION RATE > 60.0 (>45); GLUCOSE, FASTING 108 MG/DL (70-100); MAGNESIUM LEVEL 1.7 MG/DL (1.8-2.4); POTASSIUM SERUM 4.1 MEQ/L (3.5-5.1); SODIUM LEVEL 136 MEQ/L (136-145)
[2020-11-02] MEDS ORDERED: MAG SULF 1GM/100ML (MAG RUN) 1 GM in IV 1 EA IV ONE (09:00)
[2020-11-02] MEDS: CLOPIDOGREL 75 MG TAB PO SCH (09:20)
[2020-11-02] MEDS: CYANOCOBALAMIN 500 MCG TAB PO SCH (09:20)
[2020-11-02] MEDS: DOCUSATE SODIUM 100MG CAPSULE PO SCH ×2 (09:20→21:55)
[2020-11-02] MEDS: CitaloPRAM (CeleXA) 20 MG TAB PO SCH (09:20)
[2020-11-02] MEDS: VITAMIN D 1,000 INTERNATIONAL UNITS TABLET PO SCH (09:20)
[2020-11-02] MEDS: ATORVASTATIN 20 MG TAB PO SCH (09:20)
[2020-11-02] MEDS: oxyBUTYnin *DITROPAN XL* 5 MG TABCR PO SCH (09:21)
[2020-11-02] MEDS: PERCOCET 5MG/325MG TAB PO PRN ×2 (09:22→15:50)
--- NOTE | 2020-11-02 09:22 | IPNPDOC ---
Text Note Date of Service The patient was seen on 11/02/20. NOTE Subjective: Patient is a 65-year-old female who presented to [facility] for an elective vascular procedure. Patient has had a history of per ipheral vascular disease with revascularization and stenting with in-stent stenosis. She has been experiencing leg claudication that has been ongoing problem recently. has been scheduled for elective revascularization procedure via left femoral endarterectomy and left femoral below the knee po pliteal bypass with in situ vein. Patient has received medical clearance from her primary care provider Lauren Hodge and her data warehouse analyst Dr. Jeff. Patient was admitted to the hospital service with vascular surgery on consultation. Patient was seen and examined at the bedside. Patient reports that she has not expressed any chest pain, shortness breath, palpitations, nausea, vomiting, abdominal pain or diarrhea. Patient will have her Wiseman catheter discontinued today and she'll be working with physical therapy. Objective: Vitals (See below) General: Lying in bed, no acute distress, comfortable, AAOx3 HEENT: NC, AT CVS: +S1S2 Lungs: Fair air entry b/l, no evidence of wheezing, rhonchi or rales Abdomen: Soft, ND, NT Extremities: - Edema, - Calf tenderness, Left leg with dressing in place - no evidence of drainage noted Assessment and plan: Peripheral arterial disease with claudication - Has experienced claudication and history of peripheral vascular disease with revascularization and severe in-stent stenosis - Patient is status post left femoral endarterectomy with left femoral below the knee popliteal bypass with in situ vein with Dr. Mansfield on 11/01/2020 - Dr. Mansfield on consultation; appreciate their input - c/w Plavix - Will start PT / OT today and out of bed to chair / activity as tolerated HTN - BP remains well controlled - Nuclear stress test (09/20/2019) with normal perfusion - c/w HCTZ and Lisinopril DLP - c/w Atorvastatin Depression / Anxiety - c/w Citalopram Overactive bladder - c/w Oxybutynin Osteoarthritis - c/w Pain control [Percocet] Vitamin D deficiency - c/w Supplementation DVT prophylaxis - c/w Heparin Disposition: - Will work with PT and OT today - Possible DC home in 24-48 hours VS,Fishbone, I+O VS, Fishbone, I+O Laboratory Tests 11/02/20 06:07 Vital Signs Date Time Temp Pulse Resp B/P (MAP) Pulse Ox O2 Delivery O2 Flow Rate FiO2 11/02/20 06:00 98.0 85 16 128/54 (78) 93 Nasal Cannula 2.0 I&O- Last 24 Hours up to 6 AM 11/02/20 05:59 Intake Total 2710 ml Output Total 1500 ml Balance 1210 ml ALEC RIVERA MD November 02, 2020 09:22
[2020-11-02 10:00] VITALS: BP 128/70
[2020-11-02 14:00] VITALS: BP 121/68
--- NOTE | 2020-11-02 18:24 | IPNPDOC ---
Date Seen The patient was seen on 11/02/20. Progress Note Patient seen and examined. She is doing well postop day 1 status post left femoral endarterectomy and left femoral to below-knee popliteal bypass with in situ vein. She says her pain is controlled but she does have quite a bit of incisional pain. She was out of bed and ambulating today and said it went well. She said her foot feels much better. On exam, all the incisions are clean dry and intact with panda and sutures intact. There were thoroughly cleaned and redressed with dry gauze and paper tape. Her foot is warm and pink with rapid capillary refill. We weren't able to successfully Doppler today because there is a problem with the Doppler, but we will try again tomorrow. She said she did not have claudication when she walked, just incisional pain. However, the patient did not walk very far, and we do expect that she has definitely better perfusion from the common femoral endarterectomy which was nearly occluded, even if the bypasses failed. Certainly this would improve flow to the lower extremity through her collateral system however I am hopeful that she also still has great flow through the bypass as she did yesterday. We will check again tomorrow to see if we are better able to Doppler. Continue analgesia, out of bed and ambulate with assist, high-protein diet, elevation left lower extremity to help with swelling. We will continue local wound care medial thigh. We appreciate the opportunity to participate in the care of this patient. VS, I&O, 24H, Fishbone Vital Signs/I&O Vital Signs Date Time Temp Pulse Resp B/P (MAP) Pulse Ox O2 Delivery O2 Flow Rate FiO2 11/02/20 17:33 15 11/02/20 14:00 98.0 76 121/68 (85) 97 Nasal Cannula 2.0 I&O- Last 24 Hours up to 6 AM 11/02/20 06:00 Intake Total 2770 ml Output Total 1850 ml Balance 920 ml Laboratory Data 24H LABS Laboratory Tests 2 11/02/20 06:07: Immature Granulocyte % (Auto) 0.3, Neutrophils (%) (Auto) 69.7H, Lymphocytes (%) (Auto) 21.8L, Monocytes (%) (Auto) 7.6, Eosinophils (%) (Auto) 0.3, Basophils (%) (Auto) 0.3, Neutrophils # (Auto) 6.8, Lymphocytes # (Auto) 2.1, Monocytes # (Auto) 0.7, Eosinophils # (Auto) 0.0, Basophils # (Auto) 0.0, Nucleated Red Blood Cells % (auto) 0.0, Anion Gap 5L, Glomerular Filtration Rate > 60.0, Calcium Level 9.3, Magnesium Level 1.7L CBC/BMP Laboratory Tests 11/02/20 06:07 KATYA NOLEN MD November 02, 2020 18:24
[2020-11-02 22:00] VITALS: BP 108/50
[2020-11-02 23:00] VITALS: BP 110/52
[2020-11-03 04:00] VITALS: BP 120/69
[2020-11-03] MEDS: ONDANSETRON 4MG/2ML VIAL IV SCH ×5 (05:32→22:00)
[2020-11-03] MEDS: HEPARIN SOD (PORCINE) 5000UNITS/ML 1ML VIAL/SYRINGE SC SCH ×3 (05:33→22:50)
[2020-11-03 06:00] VITALS: BP 111/50
[2020-11-03 06:41] LABS: BASO % 0.3 % (0.0-1.0); EOS # 0.3 10^3/uL (0.0-0.5); EOS % 2.9 % (0.0-3.0); HEMATOCRIT 30.8 % (36.0-47.0); HEMOGLOBIN 10.2 g/dl (12.0-15.5); LYMPH # 2.9 10^3/uL (1.5-5.0); LYMPH % 31.4 % (24.0-44.0); MEAN CORPUSCULAR HEMOGLOBIN 30.7 pg (27.0-33.0); MEAN CORPUSCULAR HGB CONC 33.1 g/dl (32.0-36.5); MEAN CORPUSCULAR VOLUME 92.8 fl (80.0-96.0); MONO # 0.8 10^3/uL (0.0-0.8); MONO % 9.1 % (2.0-8.0); NEUTROPHILS # 5.1 10^3/uL (1.5-8.5); NEUTROPHILS % 55.9 % (36.0-66.0); PLATELET COUNT, AUTOMATED 198 10^3/uL (150-450); RED BLOOD COUNT 3.32 10^6/uL (4.00-5.40); WHITE BLOOD COUNT 9.1 10^3/uL (4.0-10.0)
[2020-11-03 07:08] LABS: BLOOD UREA NITROGEN 18 MG/DL (7-18); CALCIUM LEVEL 8.8 MG/DL (8.8-10.2); CARBON DIOXIDE LEVEL 33 MEQ/L (21-32); CHLORIDE LEVEL 99 MEQ/L (98-107); CREATININE FOR GFR 0.66 MG/DL (0.55-1.30); GLOMERULAR FILTRATION RATE > 60.0 (>45); GLUCOSE, FASTING 90 MG/DL (70-100); MAGNESIUM LEVEL 1.9 MG/DL (1.8-2.4); POTASSIUM SERUM 4.1 MEQ/L (3.5-5.1); SODIUM LEVEL 136 MEQ/L (136-145)
[2020-11-03] MEDS: oxyBUTYnin *DITROPAN XL* 5 MG TABCR PO SCH (08:47)
[2020-11-03] MEDS: CLOPIDOGREL 75 MG TAB PO SCH (08:48)
[2020-11-03] MEDS: CitaloPRAM (CeleXA) 20 MG TAB PO SCH (08:48)
[2020-11-03] MEDS: ATORVASTATIN 20 MG TAB PO SCH (08:48)
[2020-11-03] MEDS: DOCUSATE SODIUM 100MG CAPSULE PO SCH ×2 (08:49→22:50)
[2020-11-03] MEDS: CYANOCOBALAMIN 500 MCG TAB PO SCH (08:49)
[2020-11-03] MEDS: VITAMIN D 1,000 INTERNATIONAL UNITS TABLET PO SCH (08:53)
--- NOTE | 2020-11-03 08:56 | IPNPDOC ---
Text Note Date of Service The patient was seen on 11/03/20. NOTE Subjective: Patient is a 65-year-old female who presented to [facility] for an elective vascular procedure. Patient has had a history of per ipheral vascular disease with revascularization and stenting with in-stent stenosis. She has been experiencing leg claudication that has been ongoing problem recently. has been scheduled for elective revascularization procedure via left femoral endarterectomy and left femoral below the knee po pliteal bypass with in situ vein. Patient has received medical clearance from her primary care provider Lauren Hodge and her bottom sander Dr. Jeff. Patient was admitted to the hospital service with vascular surgery on consultation. Patient was seen and examined at the bedside. Patient was sitting up in bed eating breakfast. Denies any chest pain, short of breath, palpitations, nausea, vomiting, abdominal pain. Wiseman catheters been removed. Denies any diarrhea. Objective: Vitals (See below) General: Patient sitting up in bed, appears to be comfortable, not in any acute distress, oriented to person, place and time HEENT: NC, AT CVS: +S1S2 Lungs: There appears to be fair air entry bilaterally without any evidence of wheezing, crackles, rhonchi Abdomen: Soft, nondistended, nontender Extremities: Lower extremities again do not reveal any significant edema and l eft leg does show dressing is in place, clean and intact Assessment and plan: Peripheral arterial disease with claudication - Has experienced claudication and history of peripheral vascular disease with revascularization and severe in-stent stenosis - s/p left femoral endarterectomy with left femoral below the knee popliteal bypass with in situ vein with Dr. Mansfield on 11/01/2020 - Dr. Mansfield on consultation; appreciate their input - c/w Plavix - c/w PT / OT today and out of bed to chair / activity as tolerated HTN - BP remains well controlled - Nuclear stress test (09/20/2019) with normal perfusion - Will get CXR today to evaluate for fluid accumulation - c/w HCTZ and Lisinopril DLP - c/w Atorvastatin Depression / Anxiety - c/w Citalopram Overactive bladder - c/w Oxybutynin Osteoarthritis - c/w Pain control [Percocet] Vitamin D deficiency - c/w Supplementation DVT prophylaxis - c/w Heparin Disposition: - c/w PT and OT today - Anticipate discharge within 24 hours VS,Fishbone, I+O VS, Fishbone, I+O Laboratory Tests 11/03/20 05:52 Vital Signs Date Time Temp Pulse Resp B/P (MAP) Pulse Ox O2 Delivery O2 Flow Rate FiO2 11/03/20 08:48 117/59 11/03/20 06:00 97.9 61 16 93 Nasal Cannula 2.0 I&O- Last 24 Hours up to 6 AM 11/03/20 06:00 Intake Total 1600 ml Output Total 900 ml Balance 700 ml ALEC RIVERA MD November 03, 2020 08:56
--- NOTE | 2020-11-03 09:16 | REP ---
INDICATION: Hypoxia. COMPARISON: 07/31/2019 TECHNIQUE: Portable FINDINGS: The technique utilized in obtaining the radiograph has magnified the cardiac silhouette and accentuated the interstitial markings. The superior mediastinal structures are midline. The cardiac silhouette is unremarkable in size, shape, and position. The diaphragmatic surfaces of the lungs are regular, and the costophrenic angles are clear. The pulmonary crowley are clear. The imaged osseous structures are intact. IMPRESSION: There is no acute cardiopulmonary disease. There is been no significant change compared to the prior exam. <Electronically signed by Jamie Love > 11/03/20 [id number]
[2020-11-03 10:00] VITALS: BP 118/58
[2020-11-03] MEDS ORDERED: PERCOCET 5MG/325MG TAB PO PRN (13:50)
[2020-11-03 14:00] VITALS: BP 130/70
[2020-11-03 18:00] VITALS: BP 107/47
[2020-11-03 22:00] VITALS: BP 110/58
[2020-11-04 02:00] VITALS: BP 122/78
[2020-11-04] MEDS: ONDANSETRON 4MG/2ML VIAL IV SCH ×4 (04:00→21:04)
[2020-11-04 06:00] VITALS: BP 121/58
[2020-11-04] MEDS: HEPARIN SOD (PORCINE) 5000UNITS/ML 1ML VIAL/SYRINGE SC SCH ×3 (06:12→21:04)
[2020-11-04 06:39] LABS: BASO # 0.1 10^3/uL (0.0-0.2); BASO % 0.5 % (0.0-1.0); EOS # 0.3 10^3/uL (0.0-0.5); EOS % 3.2 % (0.0-3.0); HEMATOCRIT 30.9 % (36.0-47.0); HEMOGLOBIN 10.4 g/dl (12.0-15.5); LYMPH # 2.8 10^3/uL (1.5-5.0); LYMPH % 30.6 % (24.0-44.0); MEAN CORPUSCULAR HEMOGLOBIN 30.8 pg (27.0-33.0); MEAN CORPUSCULAR HGB CONC 33.7 g/dl (32.0-36.5); MEAN CORPUSCULAR VOLUME 91.4 fl (80.0-96.0); MONO # 0.7 10^3/uL (0.0-0.8); NEUTROPHILS # 5.2 10^3/uL (1.5-8.5); NEUTROPHILS % 57.2 % (36.0-66.0); PLATELET COUNT, AUTOMATED 224 10^3/uL (150-450); RED BLOOD COUNT 3.38 10^6/uL (4.00-5.40); WHITE BLOOD COUNT 9.2 10^3/uL (4.0-10.0)
[2020-11-04 06:59] LABS: BLOOD UREA NITROGEN 15 MG/DL (7-18); CALCIUM LEVEL 8.9 MG/DL (8.8-10.2); CARBON DIOXIDE LEVEL 32 MEQ/L (21-32); CHLORIDE LEVEL 99 MEQ/L (98-107); CREATININE FOR GFR 0.62 MG/DL (0.55-1.30); GLOMERULAR FILTRATION RATE > 60.0 (>45); GLUCOSE, FASTING 91 MG/DL (70-100); SODIUM LEVEL 135 MEQ/L (136-145)
--- NOTE | 2020-11-04 08:07 | IPNPDOC ---
Date Seen The patient was seen on 11/04/20. Progress Note Patient seen and examined postop day 3 status post left femoral endarterectomy with patch angioplasty and left femoral to below-knee popliteal bypass with in situ vein. She is doing well today. She has been up out of bed with nursing assist yesterday. She says she still has quite a bit of incisional pain but otherwise is doing well. She is tolerating a diet. On exam, the patient's left groin and left lower extremity incisions are clean dry and intact. Shanae and sutures are intact. No erythema is noted. There is a small blister on the medial mid thigh from the paper tape, but otherwise no other blistering is noted. We cleaned each incision thoroughly and redressed with dry gauze and paper tape and then wrapped the lower extremity 4 x 4's with Kerlix to help keep them in place and minimize the need for additional tape. The patient tolerated this well. We then elevated the end of the bed and elevated her leg on a pillow. This will help diminish swelling after vein bypass. I discussed with her that I think she would do well with rehabilitation prior to going home, as her bathroom is on the upper level of the house and she has to go up and down stairs to use it. Alternatively, we could possibly consider a free standing commode on the first floor, but the patient thinks she will be able to go up and down stairs. We will obtain an ARU consult to see if she would benefit, even though she feels she will be fine to go home. I'm worried that this patient will have some difficulties when she goes home. Also, if she does not qualify for rehabilitation, we can consider home health just to make sure she is doing appropriate dressing changes, eating high-protein diet, elevating her leg, and going up and down stairs safely. 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 Her leg will swell if she has it in a dependent position for a long period of time. I think her healing will be affected, and I told her likely back to work in 2-3 weeks. She is hesitantly agreeable to this plan. We appreciate the opportunity to participate in the care of this patient. VS, I&O, 24H, Fishbone Vital Signs/I&O Vital Signs Date Time Temp Pulse Resp B/P (MAP) Pulse Ox O2 Delivery O2 Flow Rate FiO2 11/04/20 06:00 97.8 74 18 121/58 (79) 94 Room Air 11/03/20 10:00 1.0 I&O- Last 24 Hours up to 6 AM 11/04/20 06:00 Intake Total 500 ml Output Total 1720 ml Balance -1220 ml Laboratory Data 24H LABS Laboratory Tests 2 11/04/20 06:17: Immature Granulocyte % (Auto) 0.5, Neutrophils (%) (Auto) 57.2, Lymphocytes (%) (Auto) 30.6, Monocytes (%) (Auto) 8.0, Eosinophils (%) (Auto) 3.2H, Basophils (%) (Auto) 0.5, Neutrophils # (Auto) 5.2, Lymphocytes # (Auto) 2.8, Monocytes # (Auto) 0.7, Eosinophils # (Auto) 0.3, Basophils # (Auto) 0.1, Nucleated Red Blood Cells % (auto) 0.0, Anion Gap 4L, Glomerular Filtration Rate > 60.0, Calcium Level 8.9, Magnesium Level 2.0 CBC/BMP Laboratory Tests 11/04/20 06:17 KATYA NOLEN MD November 04, 2020 08:07
--- NOTE | 2020-11-04 09:06 | IPNPDOC ---
Text Note Date of Service The patient was seen on 11/04/20. NOTE Subjective: Patient is a 65-year-old female who presented to [facility] for an elective vascular procedure. Patient has had a history of pe ripheral vascular disease with revascularization and stenting with in-stent stenosis. She has been experiencing leg claudication that has been ongoing problem recently. has been scheduled for elective revascularization procedure via left femoral endarterectomy and left femoral below the knee p opliteal bypass with in situ vein. Patient has received medical clearance from her primary care provider Lauren Hodge and her campus security director Dr. Jeff. Patient was admitted to the hospital service with vascular surgery on consultation. Patient was seen and examined at the bedside. Patient has worked with physical therapy yesterday, however, has not yet cleared. Patient denies any nausea, vomiting, chest pain, shortness breath, palpitations, abdominal pain, diarrhea, or urinary discomfort. Reports that her left leg feels generally better compared to yesterday. Objective: Vitals (See below) General: Patient is sitting up in bed, appears comfortable, not in any acute distress, is oriented to person, place and time HEENT: Normocephalic and atraumatic CVS: +S1S2 Lungs: No evidence of wheezing, rhonchi or rales Abdomen: Soft without distention or tenderness Extremities: No edema. Left leg with dressing in place Assessment and plan: Peripheral arterial disease with claudication - Patient reports that her left leg feels generally better than it did yesterday - History of claudication and PVD with revascularization and severe in-stent stenosis - s/p left femoral endarterectomy with left femoral below the knee popliteal bypass with in situ vein with Dr. Mansfield on 11/01/2020 - Dr. Mansfield on consultation; appreciate their input - c/w Plavix - c/w PT / OT - awaiting clearance / recommendations HTN - BP well controlled - Nuclear stress test (09/20/2019) with normal perfusion - CXR 11/03: There is no acute cardiopulmonary disease. There is been no significant change compared to the prior exam. - c/w HCTZ and Lisinopril DLP - c/w Atorvastatin Depression / Anxiety - c/w Citalopram Overactive bladder - c/w Oxybutynin Osteoarthritis - c/w Pain control [Percocet at reduced dose] Vitamin D deficiency - c/w Supplementation DVT prophylaxis - c/w Heparin Disposition: - c/w PT and OT today; awaiting recommendations VSFroy, I+O VSFroy, I+O Laboratory Tests 11/04/20 06:17 Vital Signs Date Time Temp Pulse Resp B/P (MAP) Pulse Ox O2 Delivery O2 Flow Rate FiO2 11/04/20 06:00 97.8 74 18 121/58 (79) 94 Room Air 11/03/20 10:00 1.0 I&O- Last 24 Hours up to 6 AM 11/04/20 06:00 Intake Total 500 ml Output Total 1720 ml Balance -1220 ml ALEC RIVERA MD November 04, 2020 09:06
[2020-11-04] MEDS: VITAMIN D 1,000 INTERNATIONAL UNITS TABLET PO SCH (09:19)
[2020-11-04] MEDS: CYANOCOBALAMIN 500 MCG TAB PO SCH (09:20)
[2020-11-04] MEDS: CitaloPRAM (CeleXA) 20 MG TAB PO SCH (09:20)
[2020-11-04] MEDS: CLOPIDOGREL 75 MG TAB PO SCH (09:20)
[2020-11-04] MEDS: DOCUSATE SODIUM 100MG CAPSULE PO SCH ×2 (09:20→21:04)
[2020-11-04] MEDS: ATORVASTATIN 20 MG TAB PO SCH (09:20)
[2020-11-04] MEDS: oxyBUTYnin *DITROPAN XL* 5 MG TABCR PO SCH (10:33)
[2020-11-04 14:00] VITALS: BP 123/58
[2020-11-04 22:00] VITALS: BP 152/68
[2020-11-05] MEDS: HEPARIN SOD (PORCINE) 5000UNITS/ML 1ML VIAL/SYRINGE SC SCH ×3 (05:06→21:10)
[2020-11-05] MEDS: ONDANSETRON 4MG/2ML VIAL IV SCH ×4 (05:06→21:10)
[2020-11-05 06:00] VITALS: BP 125/63
[2020-11-05 06:34] LABS: BASO % 0.5 % (0.0-1.0); EOS # 0.3 10^3/uL (0.0-0.5); HEMATOCRIT 32.9 % (36.0-47.0); HEMOGLOBIN 10.9 g/dl (12.0-15.5); LYMPH # 2.8 10^3/uL (1.5-5.0); LYMPH % 33.3 % (24.0-44.0); MEAN CORPUSCULAR HEMOGLOBIN 30.4 pg (27.0-33.0); MEAN CORPUSCULAR HGB CONC 33.1 g/dl (32.0-36.5); MEAN CORPUSCULAR VOLUME 91.9 fl (80.0-96.0); MONO # 0.5 10^3/uL (0.0-0.8); MONO % 6.2 % (2.0-8.0); NEUTROPHILS # 4.7 10^3/uL (1.5-8.5); NEUTROPHILS % 55.3 % (36.0-66.0); PLATELET COUNT, AUTOMATED 242 10^3/uL (150-450); RED BLOOD COUNT 3.58 10^6/uL (4.00-5.40); WHITE BLOOD COUNT 8.5 10^3/uL (4.0-10.0)
[2020-11-05 07:02] LABS: BLOOD UREA NITROGEN 19 MG/DL (7-18); CARBON DIOXIDE LEVEL 30 MEQ/L (21-32); CHLORIDE LEVEL 100 MEQ/L (98-107); CREATININE FOR GFR 0.68 MG/DL (0.55-1.30); GLOMERULAR FILTRATION RATE > 60.0 (>45); GLUCOSE, FASTING 97 MG/DL (70-100); MAGNESIUM LEVEL 1.9 MG/DL (1.8-2.4); SODIUM LEVEL 134 MEQ/L (136-145)
[2020-11-05] MEDS: DOCUSATE SODIUM 100MG CAPSULE PO SCH ×2 (08:50→21:10)
[2020-11-05] MEDS: VITAMIN D 1,000 INTERNATIONAL UNITS TABLET PO SCH (08:50)
[2020-11-05] MEDS: ATORVASTATIN 20 MG TAB PO SCH (08:50)
[2020-11-05] MEDS: CitaloPRAM (CeleXA) 20 MG TAB PO SCH (08:50)
[2020-11-05] MEDS: CYANOCOBALAMIN 500 MCG TAB PO SCH (08:50)
[2020-11-05] MEDS: oxyBUTYnin *DITROPAN XL* 5 MG TABCR PO SCH (08:50)
[2020-11-05] MEDS: CLOPIDOGREL 75 MG TAB PO SCH (08:51)
[2020-11-05] MEDS ORDERED: ATOR80TA59 PO (09:38)
--- NOTE | 2020-11-05 11:40 | IPNPDOC ---
Date Seen The patient was seen on 11/05/20. Progress Note Patient seen and examined postoperative day 3 status post left femoral endarterectomy and left femoral to below-knee Pop tilt bypass with in situ vein. The patient and she was noted to be in good spirits and asking when she can go home. She has not yet walked up and down stairs and has a full flight of stairs from the first floor to the second floor home, and her bathroom is on the second floor. We need to make sure she is safe to go up and down stairs. However, my biggest concern is that the patient cannot manage her own wound care. She has 5 incisions, all tenuous due to obesity, one in the groin, one below the knee, and 3 smaller incisions on the thigh. She could not even reach down to help us with the dressings today a little long do them herself. Additionally, I do not feel the patient understands me when I tried to explain her dressing changes to her. I don't think she understands me when I explained how tenuous her incisions are for healing. She doesn't seem to understand me when I explain why she needs to use a lot of protein to help with wound healing. She does not seem to understand me when I tell her she needs to shower every single day prior to changing her dressings. Mostly she just looks out the window with a blank stare while I am talking to her, which is very concerning to me. My best option for her to get appropriate help with mobility and wound care woul d be rehabilitation, but I don't think the patient qualifies as she is too independent. Although home health is an option, he worries me because usually the only come twice a week which means 5 days a week she will not be getting any wound care since I don't think she can do it herself. She said that she has a sister who was a nurse, and it's possible that if she could stay with her sister that her outcome chances would improve, and I have spoken to the hospitalist about trying to figure out if this is an option. Otherwise, unfortunately, I anticipate a lot of challenges getting her to heal. Right now, her incisions all look great. They are clean dry and intact, no erythema induration or swelling noted. All the panda and sutures are intact there is no drainage or bleeding or bruising. She has a biphasic signal over the bypass and over the common femoral artery and profunda. Her foot is warm and well-perfused. She is currently walking without claudication, but does have some incisional pain, which is expected. At this point, I do not want the patient to discharge home until we can try to put in place a plan that can best alleviate her inevitable failure to heal these incisions if she is on her own. Ideally, this would be with his sister who is capable of doing the dressing changes for her, or if we could somehow arrange for home health to come more than twice a week. I am very worried about her when she leaves the hospital, because at this point she can't even put her own sock on. Further recommendations to follow once we figure out a disposition plan. VS, I&O, 24H, Fishbone Vital Signs/I&O Vital Signs Date Time Temp Pulse Resp B/P (MAP) Pulse Ox O2 Delivery O2 Flow Rate FiO2 11/05/20 08:51 125/63 11/05/20 06:00 98.6 77 19 94 11/04/20 14:00 Room Air 11/03/20 10:00 1.0 I&O- Last 24 Hours up to 6 AM 11/05/20 05:59 Intake Total 1480 ml Output Total 1650 ml Balance -170 ml Laboratory Data 24H LABS Laboratory Tests 2 11/05/20 06:08: Immature Granulocyte % (Auto) 0.7, Neutrophils (%) (Auto) 55.3, Lymphocytes (%) (Auto) 33.3, Monocytes (%) (Auto) 6.2, Eosinophils (%) (Auto) 4.0H, Basophils (%) (Auto) 0.5, Neutrophils # (Auto) 4.7, Lymphocytes # (Auto) 2.8, Monocytes # (Auto) 0.5, Eosinophils # (Auto) 0.3, Basophils # (Auto) 0.0, Nucleated Red Blood Cells % (auto) 0.0, Anion Gap 4L, Glomerular Filtration Rate > 60.0, Calcium Level 9.0, Magnesium Level 1.9 CBC/BMP Laboratory Tests 11/05/20 06:08 KATYA NOLEN MD November 05, 2020 11:40
[2020-11-05 14:00] VITALS: BP_SYST 104; BP_SYST 91; BP_DIAS 53; BP_DIAS 54
[2020-11-05 21:29] VITALS: BP 133/63
[2020-11-06] MEDS ORDERED: ONDANSETRON 4 MG TAB PO PRN (00:50)
[2020-11-06] MEDS: HEPARIN SOD (PORCINE) 5000UNITS/ML 1ML VIAL/SYRINGE SC SCH (04:54)
[2020-11-06] MEDS: ONDANSETRON 4MG/2ML VIAL IV SCH ×2 (04:54→09:02)
[2020-11-06 06:00] VITALS: BP 136/59
[2020-11-06 06:36] LABS: BASO # 0.1 10^3/uL (0.0-0.2); BASO % 0.6 % (0.0-1.0); EOS # 0.4 10^3/uL (0.0-0.5); EOS % 4.1 % (0.0-3.0); HEMATOCRIT 33.5 % (36.0-47.0); HEMOGLOBIN 11.1 g/dl (12.0-15.5); LYMPH # 3.2 10^3/uL (1.5-5.0); LYMPH % 32.8 % (24.0-44.0); MEAN CORPUSCULAR HEMOGLOBIN 30.2 pg (27.0-33.0); MEAN CORPUSCULAR HGB CONC 33.1 g/dl (32.0-36.5); MEAN CORPUSCULAR VOLUME 91.3 fl (80.0-96.0); MONO # 0.7 10^3/uL (0.0-0.8); NEUTROPHILS # 5.3 10^3/uL (1.5-8.5); NEUTROPHILS % 54.8 % (36.0-66.0); PLATELET COUNT, AUTOMATED 297 10^3/uL (150-450); RED BLOOD COUNT 3.67 10^6/uL (4.00-5.40); WHITE BLOOD COUNT 9.7 10^3/uL (4.0-10.0)
[2020-11-06 06:59] LABS: BLOOD UREA NITROGEN 20 MG/DL (7-18); CALCIUM LEVEL 9.2 MG/DL (8.8-10.2); CARBON DIOXIDE LEVEL 29 MEQ/L (21-32); CHLORIDE LEVEL 99 MEQ/L (98-107); CREATININE FOR GFR 0.73 MG/DL (0.55-1.30); GLOMERULAR FILTRATION RATE > 60.0 (>45); GLUCOSE, FASTING 100 MG/DL (70-100); MAGNESIUM LEVEL 1.9 MG/DL (1.8-2.4); POTASSIUM SERUM 3.9 MEQ/L (3.5-5.1); SODIUM LEVEL 134 MEQ/L (136-145)
[2020-11-06] MEDS: oxyBUTYnin *DITROPAN XL* 5 MG TABCR PO SCH (08:27)
[2020-11-06] MEDS: ATORVASTATIN 20 MG TAB PO SCH (08:27)
[2020-11-06 08:29] VITALS: BP 134/59
[2020-11-06] MEDS: VITAMIN D 1,000 INTERNATIONAL UNITS TABLET PO SCH (08:29)
[2020-11-06] MEDS: DOCUSATE SODIUM 100MG CAPSULE PO SCH (08:30)
[2020-11-06] MEDS: CLOPIDOGREL 75 MG TAB PO SCH (08:30)
[2020-11-06] MEDS: CitaloPRAM (CeleXA) 20 MG TAB PO SCH (08:30)
[2020-11-06] MEDS: CYANOCOBALAMIN 500 MCG TAB PO SCH (08:30)
--- NOTE | 2020-11-06 09:18 | IPNPDOC ---
Date Seen The patient was seen on 11/06/20. Progress Note Patient seen and examined this morning. She is doing well and wants to go home. She says her sister is going to come over every day and change her dressing. She says her uncle lives with her and can help her with her mobility and any issues she has on a daily basis. I still think she would benefit from home health nurse just to check on her wound care, as well as provide physical therapy. Hopefully this can be arranged prior to discharge. On exam, the patient's incisions are clean dry and intact. They were thoroughly cleaned and redressed with dry gauze Kerlix and paper tape. The patient tolerated this well. There is no erythema or induration, mild swelling is present. We again instructed the patient to elevate her leg to help with swelling. She says she is ambulating better with assistance she was able to go up and down stairs with PT. She is still a little weak and has some pain in her leg, but this is expected with such an extensive surgery. She has a biphasic signal and warm pink foot with 1 second capillary refill. She says her foot feels better. Okay to DC home from vascular surgery standpoint as long as her sister can come daily to do wound care, and hopefully we can arrange for home health to monitor the patient's wounds and provide physical therapy at home. We will need to see her back in a week to check her incisions. Discharge instructions are below. Vascular surgery discharge instructions: Eat plenty of protein to help with wound healing. Elevate left leg to minimize swelling when at rest. No lifting greater than 5 pounds, no strenuous exercise for 2 weeks. Ok to ambulate, ok to go up and down stairs. Shower every day with dressings off. Dry off left leg and groin with clean towel before drying the rest of the body. Use a clean towel every day. Replace dressings left groin and left medial leg after gently swiping over the panda with an alcohol prep pad. There is one incision on the groin, 3 incisions on the thigh, one incision on the calf. All need to be covered with dry gauze, avoid excessive tape. Loosely wrap over the leg with kerlix gauze to keep the dressings in place. Use paper tape to secure gauze at the groin. Be careful when removing tape, because your skin is sensitive and may blister. It is important to keep the incisions free from bacteria. Make sure hands are clean before touching incisions or changing dressings. Do not change dressings right after going to the bathroom and wiping yourself. That is why it is best to change the dressings after showering when everything is clean. Wear cotton underwear, not too tight. Wear loose cotton clothing. Avoid nylon or polyester or tight garments. These will trap moisture and bacteria. VS, I&O, 24H, Fishbone Vital Signs/I&O Vital Signs Date Time Temp Pulse Resp B/P (MAP) Pulse Ox O2 Delivery O2 Flow Rate FiO2 11/06/20 08:29 134/59 11/06/20 06:00 98.0 82 18 95 11/05/20 21:29 Room Air 11/03/20 10:00 1.0 I&O- Last 24 Hours up to 6 AM 11/06/20 06:00 Intake Total 1120 ml Output Total 1350 ml Balance -230 ml Laboratory Data 24H LABS Laboratory Tests 2 11/06/20 06:00: Immature Granulocyte % (Auto) 0.7, Neutrophils (%) (Auto) 54.8, Lymphocytes (%) (Auto) 32.8, Monocytes (%) (Auto) 7.0, Eosinophils (%) (Auto) 4.1H, Basophils (%) (Auto) 0.6, Neutrophils # (Auto) 5.3, Lymphocytes # (Auto) 3.2, Monocytes # (Auto) 0.7, Eosinophils # (Auto) 0.4, Basophils # (Auto) 0.1, Nucleated Red Blood Cells % (auto) 0.0, Anion Gap 6L, Glomerular Filtration Rate > 60.0, Calcium Level 9.2, Magnesium Level 1.9 CBC/BMP Laboratory Tests 11/06/20 06:00 KATYA NOLEN MD November 06, 2020 09:18
--- NOTE | 2020-11-06 09:27 | DS.PDOC ---
Discharge Summary General Date of Admission November 01, 2020 at 06:02 Date of Discharge 11/06/20 Discharge Summary PROCEDURES PERFORMED DURING STAY: 1. Left femoral endarterectomy with Xenosure patch angioplasty 2. Left femoral to below-knee popliteal bypass with in situ vein 3. Left lower extremity arteriogram ADMITTING DIAGNOSES: #peripheral vascular disease DISCHARGE DIAGNOSES: #Peripheral arterial disease with claudication #HTN #DLP #Depression / Anxiety #Overactive bladder #Osteoarthritis #Vitamin D deficiency COMPLICATIONS/CHIEF COMPLAINT: Atherosclerosis Of [place] Arteries, Claudication... HISTORY OF PRESENT ILLNESS: 65F who presented to [facility] for an elective vascular procedure. Patient has had a history of peripheral vascular disease with revascularization and stenting with in-stent stenosis. She has been experiencing leg claudication that has been ongoing problem recently, has been scheduled for elective revascularization procedure via left femoral endarterectomy and left femoral below the knee popliteal bypass with in situ vein. Patient has received medical clearance from her primary care provider Lauren Hodge and her public health advisor Dr. Jeff. Hospitalist service was called post procedure for admission. Patient still had effects of anesthesia and was able to answer a few questions. She denied any chest pain, shortness of breath, abdominal pain or recent fevers or chills. Patient reports a mild headache and reports that she does have a slight cough. HOSPITAL COURSE: #Peripheral arterial disease with claudication - Patient reports that her left leg feels generally better than it did yesterday - History of claudication and PVD with revascularization and severe in-stent stenosis - s/p left femoral endarterectomy with left femoral below the knee popliteal bypass with in situ vein with Dr. Mansfield on 11/01/2020 - Dr. Mansfield on consultation; appreciate their input - c/w Plavix #HTN - BP well controlled - Nuclear stress test (09/20/2019) with normal perfusion - CXR 11/03: There is no acute cardiopulmonary disease. There is been no significant change compared to the prior exam. - c/w HCTZ and Lisinopril #DLP - c/w Atorvastatin #Depression / Anxiety - c/w Citalopram #Overactive bladder - c/w Oxybutynin #Osteoarthritis - c/w Pain control [Percocet at reduced dose] #Vitamin D deficiency - c/w Supplementation DISCHARGE MEDICATIONS: Please see below. ALLERGIES: Please see below. PHYSICAL EXAMINATION ON DISCHARGE: VITAL SIGNS: Please see below. GENERAL: NAD, flat affect HEENT: NC/AT, EOMI Lungs: CTA B/L Heart: +S1S2, RRR Abd: soft, NT, +BS Ext: no edema, LLE dressings in place LABORATORY DATA: Please see below. ACTIVITY: [As tolerated]. DISCHARGE PLAN: Home with services DISCHARGE INSTRUCTIONS: 1. PCP as scheduled. 2. Vascular surgery as scheduled 3. Dressing changes as directed. DISCHARGE CONDITION: [Stable]. TIME SPENT ON DISCHARGE: 35 minutes. Vital Signs/I&Os Vital Signs Date Time Temp Pulse Resp B/P (MAP) Pulse Ox O2 Delivery O2 Flow Rate FiO2 11/06/20 08:29 134/59 11/06/20 06:00 98.0 82 18 95 11/05/20 21:29 Room Air 11/03/20 10:00 1.0 I&O- Last 24 Hours up to 6 AM 11/06/20 06:00 Intake Total 1120 ml Output Total 1350 ml Balance -230 ml Laboratory Data Labs 24H Laboratory Tests 2 11/06/20 06:00: Immature Granulocyte % (Auto) 0.7, Neutrophils (%) (Auto) 54.8, Lymphocytes (%) (Auto) 32.8, Monocytes (%) (Auto) 7.0, Eosinophils (%) (Auto) 4.1H, Basophils (%) (Auto) 0.6, Neutrophils # (Auto) 5.3, Lymphocytes # (Auto) 3.2, Monocytes # (Auto) 0.7, Eosinophils # (Auto) 0.4, Basophils # (Auto) 0.1, Nucleated Red Blood Cells % (auto) 0.0, Anion Gap 6L, Glomerular Filtration Rate > 60.0, Calcium Level 9.2, Magnesium Level 1.9 CBC/BMP Laboratory Tests 11/06/20 06:00 Discharge Medications Scheduled Atorvastatin Calcium (Atorvastatin Calcium) 80 Mg Tablet, 1 TAB PO DAILY Cholecalciferol (Vitamin D3) (Vitamin D3) 1,000 Unit Tablet, 2,000 UNITS PO DAILY, (Reported) Citalopram Hydrobromide (Citalopram HBr) 20 Mg Tab, 20 MG PO DAILY, (Reported) Clopidogrel Bisulfate (Plavix) 75 Mg Tablet, 75 MG PO DAILY, (Reported) Cyanocobalamin (Vitamin B-12) (Vitamin B-12) 500 Mcg Tab, 500 MCG PO DAILY, (Reported) Hydrochlorothiazide (Hydrochlorothiazide) 25 Mg Tab, 25 MG PO DAILY, (Reported) Lisinopril (Lisinopril) 20 Mg Tab, 20 MG PO DAILY, (Reported) Oxybutynin Chloride (Oxybutynin Chloride ER) 15 Mg Tab, 30 MG PO DAILY, (Reported) Scheduled PRN Acetaminophen (Acetaminophen) 500 Mg Tablet, 500 MG PO Q6HP PRN for PAIN, (Reported) Allergies Coded Allergies: naproxen (Verified Allergy, Unknown, itching, 10/17/20) MYRON MATTHEWS MD November 06, 2020 09:27
--- NOTE | 2020-11-06 09:31 | IPNPDOC ---
Text Note Date of Service The patient was seen on 11/05/20. NOTE Subjective: Patient seen and examined at bedside. No acute overnight events reported. Patient voices no new medical complaints this morning. Objective: VITAL SIGNS: Please see below. GENERAL: NAD, flat affect HEENT: NC/AT, EOMI Lungs: CTA B/L Heart: +S1S2, RRR Abd: soft, NT, +BS Ext: no edema, LLE dressings in place A/P: #Peripheral arterial disease with claudication - Patient reports that her left leg feels generally better than it did yesterday - History of claudication and PVD with revascularization and severe in-stent stenosis - s/p left femoral endarterectomy with left femoral below the knee popliteal bypass with in situ vein with Dr. Mansfield on 11/01/2020 - Dr. Mansfield on consultation; appreciate their input - c/w Plavix #HTN - BP well controlled - Nuclear stress test (09/20/2019) with normal perfusion - CXR 11/03: There is no acute cardiopulmonary disease. There is been no significant change compared to the prior exam. - c/w HCTZ and Lisinopril #DLP - c/w Atorvastatin #Depression / Anxiety - c/w Citalopram #Overactive bladder - c/w Oxybutynin #Osteoarthritis - c/w Pain control [Percocet at reduced dose] #Vitamin D deficiency - c/w Supplementation VS,Fishbone, I+O VS, Fishbone, I+O Laboratory Tests 11/06/20 06:00 Vital Signs Date Time Temp Pulse Resp B/P (MAP) Pulse Ox O2 Delivery O2 Flow Rate FiO2 11/06/20 08:29 134/59 11/06/20 06:00 98.0 82 18 95 11/05/20 21:29 Room Air 11/03/20 10:00 1.0 I&O- Last 24 Hours up to 6 AM 11/06/20 06:00 Intake Total 1120 ml Output Total 1350 ml Balance -230 ml MYRON MATTHEWS MD November 06, 2020 09:31
== END 2020-11-06 11:54 | disposition home health service (06) | DRG 254 ==
LOC: M OR 06:02 → M MSPAV 16:49
PROVIDERS: ADMIT Surgery Vascular Surgery; ATTEND Internal Medicine
PROC: 04CL0ZZ Extirpation of Matter from Left Femoral Artery, Open Approach (ICD-10-PCS; principal; 2020-11-01 07:30)
PROC: 041L09L Bypass Left Femoral Artery to Popliteal Artery with Autologous Venous Tissue, Open Approach (ICD-10-PCS; 2020-11-01 07:30)
DX: T82.856A Stenosis of peripheral vascular stent, initial encounter (principal); I70.222 Atherosclerosis of native arteries of extremities with rest pain, left leg; I10 Essential (primary) hypertension; F41.9 Anxiety disorder, unspecified; F32.9 Major depressive disorder, single episode, unspecified; M19.90 Unspecified osteoarthritis, unspecified site; E55.9 Vitamin D deficiency, unspecified; Z79.899 Other long term (current) drug therapy; Z88.8 Allergy status to other drugs, medicaments and biological substances; E78.5 Hyperlipidemia, unspecified; N32.81 Overactive bladder; Z87.891 Personal history of nicotine dependence; Y83.1 Surgical operation with implant of artificial internal device as the cause of abnormal reaction of the patient, or of later complication, without mention of misadventure at the time of the procedure

== ENCOUNTER 2020-11-12 12:27 | Emergency (ER) | payer MEDICARE ==
[~2020-11-12] VITALS: Ht 162.6 cm; Wt 72.7 kg
[~2020-11-12 12:27] MED LIST changes: +ACET-683 PO; -LR 1,000 ML IV ONE; -ceFAZolin SOD 2 GM in IV 1 EA IV ONE
[2020-11-12] MEDS ORDERED: ONDANSETRON 4MG/2ML VIAL IV ONE (13:10)
[2020-11-12 13:58] LABS: BASO # 0.1 10^3/uL (0.0-0.2); BASO % 0.4 % (0.0-1.0); EOS # 0.1 10^3/uL (0.0-0.5); EOS % 0.9 % (0.0-3.0); HEMATOCRIT 34.3 % (36.0-47.0); HEMOGLOBIN 11.5 g/dl (12.0-15.5); LYMPH # 2.7 10^3/uL (1.5-5.0); LYMPH % 21.6 % (24.0-44.0); MEAN CORPUSCULAR HEMOGLOBIN 30.3 pg (27.0-33.0); MEAN CORPUSCULAR HGB CONC 33.5 g/dl (32.0-36.5); MEAN CORPUSCULAR VOLUME 90.5 fl (80.0-96.0); MONO # 0.7 10^3/uL (0.0-0.8); MONO % 5.8 % (2.0-8.0); NEUTROPHILS # 8.8 10^3/uL (1.5-8.5); NEUTROPHILS % 70.4 % (36.0-66.0); PLATELET COUNT, AUTOMATED 402 10^3/uL (150-450); RED BLOOD COUNT 3.79 10^6/uL (4.00-5.40); WHITE BLOOD COUNT 12.4 10^3/uL (4.0-10.0)
[2020-11-12 14:24] LABS: ALBUMIN 3.3 GM/DL (3.2-5.2); ALT/SGPT 26 U/L (12-78); BILIRUBIN,DIRECT 0.2 MG/DL (0.0-0.2); BILIRUBIN,TOTAL 0.5 MG/DL (0.2-1.0); BLOOD UREA NITROGEN 18 MG/DL (7-18); CALCIUM LEVEL 9.7 MG/DL (8.8-10.2); CARBON DIOXIDE LEVEL 27 MEQ/L (21-32); CHLORIDE LEVEL 98 MEQ/L (98-107); CK-MB VALUE MASS 2.9 NG/ML (<3.6); CPK CREATINE PHOSPHOKINASE 231 U/L (26-192); CREATININE FOR GFR 0.81 MG/DL (0.55-1.30); GLOMERULAR FILTRATION RATE > 60.0 (>45); GLUCOSE, FASTING 88 MG/DL (70-100); LIPASE 68 U/L (73-393); MB/CK RELATIVE INDEX 1.26 (< OR =4); POTASSIUM SERUM 4.3 MEQ/L (3.5-5.1); SODIUM LEVEL 133 MEQ/L (136-145); TOTAL PROTEIN 6.9 GM/DL (6.4-8.2); TROPONIN I < 0.02 NG/ML (< 0.10)
[2020-11-12] MEDS ORDERED: NORCO, ANEXSIA 5/325MG TABLET (HYDROcodone/ACETAMINOPHEN) PO ONE (14:50)
--- NOTE | 2020-11-12 16:28 | REP ---
INDICATION: LLE cool/pale; assess fem-pop bypass COMPARISON: None. TECHNIQUE: Left lower extremity arterial Doppler FINDINGS: All numeric values represent peak systolic velocity in cm/sec. The ankle brachial index could not be calculated MOTORBOAT MECHANIC: 59.7 monophasic Profunda: 28.9 monophasic SFA proximal: 41.1 monophasic SFA mid: 46.6 monophasic SFA distal: 77.7 monophasic Popliteal: 36.3 monophasic LORENZA proximal: 5.1 monophasic Tibioperoneal trunk: 17.9 monophasic NEWS CONTENT SPECIALIST proximal: 7.4 monophasic NEWS CONTENT SPECIALIST distal: 3.5 monophasic LORENZA: Distal 3.5 monophasic The technologist noted the imaged portion of the bypass graft from the common femoral artery to the proximal calf to be fully occluded. IMPRESSION: As above <Electronically signed by Jamie Love > 11/12/20 [id number]
[2020-11-12] MEDS ORDERED: HYDR-3713 PO (17:06)
[2020-11-12 17:46] VITALS: BP 127/58
--- NOTE | 2020-11-12 20:59 | ECGEPIP ---
[facility] - ED Test Date: 2020-11-12 Pat Name: PETER OROPEZA Department: Room: - Gender: Female Toll Lineman: MARTHA : 1955 Requested By: ALEX VILLAGOMEZ Order Number: [id number] Reading MD: Dony Stein Measurements Intervals [place] Rate: 68 P: -16 DC: 156 QRS: -19 QRSD: 94 T: 5 QT: 392 QTc: 416 Interpretive Statements Normal sinus rhythm Inferior infarct , age undetermined SIMILAR TO 07/31/19 Electronically Signed on 11-12-2020 20:59:01 EDT by Dony Stein
--- NOTE | 2020-11-13 10:26 | ED PDOC ---
Post-Departure Follow-Up dr franco faxed formal report of arterial us for fu Elsy Angeles MD November 13, 2020 10:26
== END 2020-11-12 19:13 | disposition home or self-care (01) ==
LOC: M ED 12:27
DX: I73.9 Peripheral vascular disease, unspecified (principal); I25.2 Old myocardial infarction; R94.31 Abnormal electrocardiogram [ECG] [EKG]; I10 Essential (primary) hypertension; E78.5 Hyperlipidemia, unspecified; Z79.01 Long term (current) use of anticoagulants; Z79.899 Other long term (current) drug therapy; Z88.8 Allergy status to other drugs, medicaments and biological substances; Z98.890 Other specified postprocedural states
CPT/HCPCS: 80048; 80076; 82550; 82553; 83690; 84484; 85025; 87798; 93005; 93041; 93926; 96374; 99285; J2405

== ENCOUNTER → 2020-12-07 | Outpatient (CLI) | payer MEDICARE ==
[~2020-12-07] MED LIST changes: +HYDR-3713 PO
--- NOTE | 2020-12-07 12:34 | REPVR ---
PROCEDURE INFORMATION: Exam: MR Head Without Contrast Exam date and time: 12/07/2020 9:08 AM Age: 65 years old Clinical indication: Dizziness; Additional info: Vomiting, memory loss TECHNIQUE: Imaging protocol: MR of the head without contrast. COMPARISON: No relevant prior studies available. FINDINGS: Brain: There is moderate patchy increased T2 signal intensity within the bilateral cerebral periventricular white matter, consistent with chronic microvascular ischemic changes. There are few small focal areas of chronic ischemia in bilateral frontal, parietal and periatrial white matter. There is no abnormal diffusion weighted signal intensity to suggest an acute ischemic event. There is moderate diffuse cerebral atrophy present, consistent with this patient's age. Cerebral ventricles: The ventricular system demonstrates moderate diffuse compensatory enlargement. Bones/joints: Unremarkable. Paranasal sinuses: Mild mucosal thickening is seen in the paranasal sinuses. Mastoid air cells: Normal as visualized. No mastoid effusion. Orbital cavity: Unremarkable. Soft tissues: Unremarkable. IMPRESSION: 1. No acute infarction, masses or hemorrhage is seen. No acute intracranial abnormality is identified. 2. Diffuse age-related cerebral atrophy and moderate chronic microvascular white matter ischemic changes, without evidence of an acute intracranial abnormality. Electronically signed by: Jose Flores On 12/07/2020 12:34:07 PM
== END ==
LOC: M RAD 08:28
PROVIDERS: ATTEND Family Medicine
DX: R11.10 Vomiting, unspecified (principal); R41.3 Other amnesia

== ENCOUNTER → 2021-03-23 | Outpatient (REF) | payer MEDICARE | LOC: M WUC 18:58 | PROVIDERS: ATTEND Physician Assistant | DX: J06.9 Acute upper respiratory infection, unspecified (principal) ==

== ENCOUNTER → 2021-07-14 | Outpatient (REF) | payer MEDICARE | LOC: M LAB REF 19:10 → M WUC 19:10 | PROVIDERS: ATTEND Physician Assistant | DX: N39.0 Urinary tract infection, site not specified (principal) ==

== ENCOUNTER 2021-07-25 13:07 | Emergency (ER) | payer MEDICARE ==
[~2021-07-25] VITALS: Ht 160 cm; Wt 68.4 kg
[~2021-07-25 13:07] MED LIST changes: -CIPR-249 PO; -ONDA4TAB6 PO; -PYRI1TAB5 PO
[2021-07-25] MEDS ORDERED: CIPROFLOXACIN 500MG TABLET PO ONE (18:50)
[2021-07-25] MEDS ORDERED: PHENAZOPYRIDINE 100 MG TAB PO ONE (18:50)
[2021-07-25] MEDS ORDERED: CIPR-249 PO (18:57)
[2021-07-25] MEDS ORDERED: PYRI1TAB5 PO (18:57)
[2021-07-25] MEDS ORDERED: ONDA4TAB6 PO (18:57)
[2021-07-25 20:26] VITALS: BP 136/63
== END 2021-07-25 21:06 | disposition home or self-care (01) ==
LOC: M ED 13:07
DX: N39.0 Urinary tract infection, site not specified (principal); I10 Essential (primary) hypertension; F33.9 Major depressive disorder, recurrent, unspecified; Z79.899 Other long term (current) drug therapy; Z79.01 Long term (current) use of anticoagulants; Z88.8 Allergy status to other drugs, medicaments and biological substances

== ENCOUNTER → 2021-07-25 | Outpatient (REF) | payer MEDICARE ==
[~2021-07-25] MED LIST changes: +CIPR-249 PO; +ONDA4TAB6 PO; +PYRI1TAB5 PO
== END ==
LOC: M LAB REF 13:38
PROVIDERS: ATTEND Nurse Practitioner Family
DX: R30.0 Dysuria (principal)

== ENCOUNTER → 2021-09-08 | Outpatient (CLI) | payer MEDICARE ==
[~2021-09-08] MED LIST changes: +CIPR-249 PO; -D31000TA2 PO; +ONDA4TAB6 PO; +PYRI1TAB5 PO; +VITA100093 PO
[2021-09-08 14:59] LABS: BASO # 0.1 10^3/uL (0.0-0.2); BASO % 0.7 % (0.0-1.0); EOS # 0.4 10^3/uL (0.0-0.5); EOS % 4.7 % (0.0-3.0); HEMATOCRIT 34.2 % (36.0-47.0); HEMOGLOBIN 11.3 g/dl (12.0-15.5); LYMPH # 3.3 10^3/uL (1.5-5.0); MEAN CORPUSCULAR HEMOGLOBIN 30.6 pg (27.0-33.0); MEAN CORPUSCULAR VOLUME 92.7 fl (80.0-96.0); MONO # 0.6 10^3/uL (0.0-0.8); MONO % 6.8 % (2.0-8.0); NEUTROPHILS # 4.5 10^3/uL (1.5-8.5); NEUTROPHILS % 50.6 % (36.0-66.0); PLATELET COUNT, AUTOMATED 267 10^3/uL (150-450); RED BLOOD COUNT 3.69 10^6/uL (4.00-5.40)
[2021-09-08 15:04] LABS: APPEARANCE, URINE CLOUDY (CLEAR); BACTERIA, URINE AUTO 2+ (NEGATIVE); BILIRUBIN, URINE AUTO NEGATIVE (NEGATIVE); BLOOD, URINE BLOOD NEGATIVE (NEGATIVE); COLOR, URINE YELLOW (YELLOW); GLUCOSE, URINE (UA) AUTO NEGATIVE (NEGATIVE); KETONE, URINE AUTO NEGATIVE (NEGATIVE); LEUKOCYTE ESTERASE, URINE AUTO 2+ (NEGATIVE); MUCUS, URINE SMALL (NEGATIVE); NITRITE, URINE AUTO NEGATIVE (NEGATIVE); PROTEIN, URINE AUTO NEGATIVE (NEGATIVE); RBC, URINE AUTO 6 /HPF (0-3); SPECIFIC GRAVITY URINE AUTO 1.015 (1.002-1.035); SQUAMOUS EPITHELIAL CELL UR AU 1 /HPF (0-6); WBC, URINE AUTO 133 /HPF (0-3)
[2021-09-08 15:41] LABS: ALBUMIN 3.8 GM/DL (3.2-5.2); ALT/SGPT 22 U/L (12-78); BILIRUBIN,TOTAL 0.8 MG/DL (0.2-1.0); BLOOD UREA NITROGEN 20 MG/DL (7-18); CALCIUM LEVEL 9.5 MG/DL (8.8-10.2); CARBON DIOXIDE LEVEL 31 MEQ/L (21-32); CHLORIDE LEVEL 104 MEQ/L (98-107); CHOLESTEROL LEVEL 155 MG/DL (<200); CHOLESTEROL RISK RATIO 2.767 (<5); CREATININE FOR GFR 0.88 MG/DL (0.55-1.30); FREE T4 0.95 NG/DL (0.76-1.46); GLOMERULAR FILTRATION RATE > 60.0 (>45); GLUCOSE, FASTING 80 MG/DL (70-100); HDL CHOLESTEROL 56 MG/DL (>40); LDL CHOLESTEROL 65 MG/DL (<100); NON-HDL-C 99 MG/DL; POTASSIUM SERUM 4.3 MEQ/L (3.5-5.1); SODIUM LEVEL 139 MEQ/L (136-145); TOTAL PROTEIN 7.1 GM/DL (6.4-8.2); TRIGLYCERIDES LEVEL 169 MG/DL (<150)
== END ==
LOC: M LAB 14:29
PROVIDERS: ATTEND Nurse Practitioner Family
DX: R10.30 Lower abdominal pain, unspecified (principal); Z79.899 Other long term (current) drug therapy

== ENCOUNTER → 2021-10-27 | Outpatient (CLI) | payer MEDICARE | LOC: M RAD 09:08 | PROVIDERS: ATTEND Nurse Practitioner Family | DX: R09.89 Other specified symptoms and signs involving the circulatory and respiratory systems (principal) ==

== ENCOUNTER → 2021-10-30 | Outpatient (CLI) | payer MEDICARE | LOC: M WHC 08:39 | PROVIDERS: ATTEND Nurse Practitioner Family | DX: Z12.31 Encounter for screening mammogram for malignant neoplasm of breast (principal); Z13.820 Encounter for screening for osteoporosis; M85.88 Other specified disorders of bone density and structure, other site ==

== ENCOUNTER → 2021-12-11 | Outpatient (CLI) | payer MEDICARE ==
[~2021-12-11] MED LIST changes: +ISOVUE-370 76% 100ML VIAL As Ordered ONE
== END ==
LOC: M RAD 10:38
PROVIDERS: ATTEND Internal Medicine Gastroenterology
DX: I70.0 Atherosclerosis of aorta (principal); R63.4 Abnormal weight loss; K55.1 Chronic vascular disorders of intestine; R11.2 Nausea with vomiting, unspecified; N28.1 Cyst of kidney, acquired
CPT/HCPCS: 74174; Q9967

== ENCOUNTER → 2022-03-23 | Outpatient (CLI) | payer MEDICARE ==
[~2022-03-23] MED LIST changes: -ISOVUE-370 76% 100ML VIAL As Ordered ONE
[2022-03-23 15:10] LABS: CREATININE FOR GFR 1.53 MG/DL (0.55-1.30); GLOMERULAR FILTRATION RATE 36.2 (>45)
== END ==
LOC: M LAB 12:16
PROVIDERS: ATTEND Internal Medicine Gastroenterology
DX: R63.4 Abnormal weight loss (principal)

== ENCOUNTER → 2022-04-10 | Outpatient (CLI) | payer MEDICARE | LOC: M RAD 14:12 | PROVIDERS: ATTEND Physician Assistant | DX: Z48.812 Encounter for surgical aftercare following surgery on the circulatory system (principal); T82.898A Other specified complication of vascular prosthetic devices, implants and grafts, initial encounter; I70.212 Atherosclerosis of native arteries of extremities with intermittent claudication, left leg; K55.1 Chronic vascular disorders of intestine ==

== ENCOUNTER → 2022-04-30 | Outpatient (CLI) | payer MEDICARE ==
[~2022-04-30] MED LIST changes: +CLOP75TA99 PO; -PLAV1TAB2 PO
== END ==
LOC: M RAD 08:49
PROVIDERS: ATTEND Physician Assistant
DX: K55.1 Chronic vascular disorders of intestine (principal); Z48.812 Encounter for surgical aftercare following surgery on the circulatory system

== ENCOUNTER → 2022-07-24 | Outpatient (CLI) | payer MEDICARE ==
[~2022-07-24] MED LIST changes: +ISOVUE-370 76% 100ML VIAL As Ordered ONE
== END ==
LOC: M RAD 13:37
PROVIDERS: ATTEND Surgery Vascular Surgery
DX: K55.1 Chronic vascular disorders of intestine (principal); I70.1 Atherosclerosis of renal artery; I70.0 Atherosclerosis of aorta; Z95.828 Presence of other vascular implants and grafts
CPT/HCPCS: 74175; Q9967

== ENCOUNTER 2023-01-23 11:02 | Emergency (ER) | payer MEDICARE ==
[~2023-01-23] VITALS: Ht 162.6 cm; Wt 77.8 kg
[2023-01-23 11:02] VITALS: BP 164/87; TEMP 98.5; O2SAT 96
[~2023-01-23 11:02] MED LIST changes: -ISOVUE-370 76% 100ML VIAL As Ordered ONE
== END 2023-01-23 13:17 | disposition home or self-care (01) ==
LOC: M ED 11:02
DX: S62.306A Unspecified fracture of fifth metacarpal bone, right hand, initial encounter for closed fracture (principal); W01.0XXA Fall on same level from slipping, tripping and stumbling without subsequent striking against object, initial encounter; Y92.009 Unspecified place in unspecified non-institutional (private) residence as the place of occurrence of the external cause; Y93.01 Activity, walking, marching and hiking; Y99.8 Other external cause status; Z79.899 Other long term (current) drug therapy; Z88.6 Allergy status to analgesic agent

== ENCOUNTER → 2023-05-13 | Outpatient (CLI) | payer MEDICARE ==
[2023-05-13 14:05] LABS: BASO # 0.1 10^3/uL (0.0-0.2); BASO % 0.9 % (0.0-1.0); EOS # 0.2 10^3/uL (0.0-0.5); EOS % 2.9 % (0.0-3.0); HEMATOCRIT 41.8 % (36.0-47.0); HEMOGLOBIN 13.6 g/dl (12.0-15.5); LYMPH # 2.1 10^3/uL (1.5-5.0); MEAN CORPUSCULAR HEMOGLOBIN 30.3 pg (27.0-33.0); MEAN CORPUSCULAR HGB CONC 32.5 g/dl (32.0-36.5); MEAN CORPUSCULAR VOLUME 93.1 fl (80.0-96.0); MONO # 0.5 10^3/uL (0.0-0.8); NEUTROPHILS # 5.3 10^3/uL (1.5-8.5); NEUTROPHILS % 64.8 % (36.0-66.0); PLATELET COUNT, AUTOMATED 260 10^3/uL (150-450); RED BLOOD COUNT 4.49 10^6/uL (4.00-5.40); WHITE BLOOD COUNT 8.2 10^3/uL (4.0-10.0)
[2023-05-13 14:07] LABS: LIPASE 21 U/L (12-53)
[2023-05-13 14:08] LABS: AMYLASE 44 U/L (30-118)
[2023-05-13 14:09] LABS: ALBUMIN 3.8 G/DL (3.2-5.2); ALKALINE PHOSPHATASE 66 U/L (46-116); ALT/SGPT 29 U/L (7.0-40); AST/SGOT 23 U/L (<34); BILIRUBIN,TOTAL 0.8 MG/DL (0.3-1.2); BLOOD UREA NITROGEN 20 MG/DL (9-23); CALCIUM LEVEL 9.5 MG/DL (8.3-10.6); CARBON DIOXIDE LEVEL 30 MMOL/L (20-31); CHLORIDE LEVEL 105 MMOL/L (98-107); CREATININE FOR GFR 0.72 MG/DL (0.55-1.30); GLOMERULAR FILTRATION RATE > 60.0 (>45); GLUCOSE, FASTING 95 MG/DL (74-106); POTASSIUM SERUM 4.7 MMOL/L (3.5-5.1); SODIUM LEVEL 144 MMOL/L (136-145); TOTAL PROTEIN 7.3 G/DL (5.7-8.2)
== END ==
LOC: M PLALAB 10:37
PROVIDERS: ATTEND Registered Nurse
DX: R11.2 Nausea with vomiting, unspecified (principal)

== ENCOUNTER → 2023-06-02 | Outpatient (CLI) | payer MEDICARE ==
[~2023-06-02] MED LIST changes: +ISOVUE-370 76% 100ML VIAL As Ordered ONE
== END ==
LOC: M RAD 09:04
PROVIDERS: ATTEND Physician Assistant
DX: I70.222 Atherosclerosis of native arteries of extremities with rest pain, left leg (principal); K55.1 Chronic vascular disorders of intestine; I70.8 Atherosclerosis of other arteries; I70.92 Chronic total occlusion of artery of the extremities
CPT/HCPCS: 75635; Q9967

== ENCOUNTER → 2023-06-07 | Outpatient (CLI) | payer MEDICARE ==
[~2023-06-07] MED LIST changes: -ISOVUE-370 76% 100ML VIAL As Ordered ONE
== END ==
LOC: M RAD 11:26
PROVIDERS: ATTEND Physician Assistant
DX: I65.21 Occlusion and stenosis of right carotid artery (principal)

== ENCOUNTER → 2023-09-06 | Outpatient (CLI) | payer MEDICARE, OTHER ==
[2023-09-06 14:02] LABS: HEMATOCRIT 37.7 % (36.0-47.0); MEAN CORPUSCULAR HGB CONC 31.8 g/dl (32.0-36.5); MEAN CORPUSCULAR VOLUME 97.4 fl (80.0-96.0); PLATELET COUNT, AUTOMATED 186 10^3/uL (150-450); RED BLOOD COUNT 3.87 10^6/uL (4.00-5.40); WHITE BLOOD COUNT 5.7 10^3/uL (4.0-10.0)
[2023-09-06 14:26] LABS: CHOLESTEROL RISK RATIO 2.69 (<5); HDL CHOLESTEROL 50.1 MG/DL (>40); LDL CHOLESTEROL 67.1 MG/DL (<100); NON-HDL-C 84.9 MG/DL
== END ==
LOC: M PLALAB 09:10
PROVIDERS: ATTEND Nurse Practitioner Family
DX: I48.19 Other persistent atrial fibrillation (principal); E78.2 Mixed hyperlipidemia

== ENCOUNTER 2023-12-14 15:10 | Inpatient (IN) | payer OTHER ==
[~2023-12-14] VITALS: Ht 162.6 cm; Wt 76.5 kg
[~2023-12-14 15:10] MED LIST changes: +ONDA-282 PO; -ONDA4TAB6 PO
[2023-12-14 15:55] LABS: VENOUS BASE EXCESS 4.5 (-2.0-2.0); VENOUS HCO3 30.6 MMOL/L (23.0-27.0); VENOUS O2 SATURATION 47.4 % (60.0-80.0); VENOUS PARTIAL PRESSURE CO2 52.4 mmHg (38.0-50.0); VENOUS PARTIAL PRESSURE O2 27.3 mmHg (30.0-50.0); VENOUS PH 7.384 UNITS (7.330-7.430); VENOUS STANDARD HCO3 27.4 MMOL/L; VENOUS TOTAL CO2 32.2 MMOL/L (24.0-28.0)
[2023-12-14 16:02] LABS: BASO % 0.3 % (0.0-1.0); EOS # 0.1 10^3/uL (0.0-0.5); EOS % 0.6 % (0.0-3.0); HEMATOCRIT 33.4 % (36.0-47.0); HEMOGLOBIN 11.3 g/dl (12.0-15.5); LYMPH % 15.7 % (24.0-44.0); MEAN CORPUSCULAR HEMOGLOBIN 31.8 pg (27.0-33.0); MEAN CORPUSCULAR HGB CONC 33.8 g/dl (32.0-36.5); MEAN CORPUSCULAR VOLUME 94.1 fl (80.0-96.0); MONO # 0.9 10^3/uL (0.0-0.8); MONO % 7.2 % (2.0-8.0); NEUTROPHILS # 9.9 10^3/uL (1.5-8.5); NEUTROPHILS % 75.7 % (36.0-66.0); PLATELET COUNT, AUTOMATED 281 10^3/uL (150-450); RED BLOOD COUNT 3.55 10^6/uL (4.00-5.40)
[2023-12-14] MEDS: IPRATROPIUM 0.5MG/ALBUTEROL 2.5MG INH SOL UD 3ML (DUONEB) NEB PRN (16:05)
[2023-12-14] MEDS: methylPREDNISolone 125MG 2ML VIAL IV ONE (16:07)
[2023-12-14 16:25] LABS: ALBUMIN 3.2 G/DL (3.2-5.2); BILIRUBIN,DIRECT 0.6 MG/DL (<0.4); BILIRUBIN,TOTAL 1.6 MG/DL (0.3-1.2); CALCIUM LEVEL 9.1 MG/DL (8.3-10.6); CREATININE FOR GFR 1.08 MG/DL (0.55-1.30); GLOMERULAR FILTRATION RATE 53.7 (>45); POTASSIUM SERUM 3.5 MMOL/L (3.5-5.1); TOTAL PROTEIN 7.2 G/DL (5.7-8.2)
[2023-12-14] MEDS ORDERED: ISOVUE-370 76% 100ML VIAL As Ordered ONE (16:37)
[2023-12-14] MEDS: cefTRIAXone SOD 1 GM in D5W MINI-BAG PLUS 50 ML IV ONE (17:35)
[2023-12-14] MEDS ORDERED: MAALOX 30 ML SUSP *UDC PO PRN (18:10)
[2023-12-14] MEDS ORDERED: MOM 30ML SUSPENSION UDC PO PRN (18:10)
[2023-12-14] MEDS ORDERED: IPRATROPIUM 0.5MG/ALBUTEROL 2.5MG INH SOL UD 3ML (DUONEB) NEB PRN (19:00)
[2023-12-14 19:20] LABS: C REACTIVE PROTEIN QUANTITATIV 27.2 MG/DL (<1.0); PROCALCITONIN 0.13 ng/ml
[2023-12-14] MEDS: DOXYCYCLINE HYCLATE 100MG TABLET PO SCH (21:01)
[2023-12-14] MEDS: guaiFENesin ER TABLET 600 MG TAB PO SCH (21:01)
[2023-12-14 22:00] VITALS: BP 111/46; TEMP 98.5; O2SAT 94
[2023-12-14] MEDS ORDERED: XARE20TA PO (22:24)
[2023-12-14] MEDS ORDERED: LISI10TA22 PO (22:24)
[2023-12-14] MEDS ORDERED: EZET10TA58 PO (22:24)
[2023-12-14] MEDS ORDERED: AMIO200T49 PO (22:24)
[2023-12-14] MEDS ORDERED: GABA-282 PO (22:24)
[2023-12-14] MEDS ORDERED: HOME MED LIST COMPLETE! XX SCH (22:25)
[2023-12-14] MEDS: RIVAROXABAN 20MG TAB (XARELTO) PO SCH (23:02)
[2023-12-15 04:07] VITALS: BP 126/88; TEMP 97.7; O2SAT 94
[2023-12-15 06:37] LABS: BASO % 0.1 % (0.0-1.0); HEMOGLOBIN 10.9 g/dl (12.0-15.5); LYMPH # 1.2 10^3/uL (1.5-5.0); LYMPH % 10.5 % (24.0-44.0); MEAN CORPUSCULAR HEMOGLOBIN 31.9 pg (27.0-33.0); MEAN CORPUSCULAR VOLUME 96.5 fl (80.0-96.0); MONO # 0.1 10^3/uL (0.0-0.8); MONO % 1.1 % (2.0-8.0); NEUTROPHILS # 10.3 10^3/uL (1.5-8.5); NEUTROPHILS % 87.7 % (36.0-66.0); PLATELET COUNT, AUTOMATED 295 10^3/uL (150-450); RED BLOOD COUNT 3.42 10^6/uL (4.00-5.40); WHITE BLOOD COUNT 11.8 10^3/uL (4.0-10.0)
[2023-12-15 07:01] LABS: CALCIUM LEVEL 8.9 MG/DL (8.3-10.6); CREATININE FOR GFR 1.19 MG/DL (0.55-1.30); POTASSIUM SERUM 3.8 MMOL/L (3.5-5.1)
[2023-12-15] MEDS: cefTRIAXone SOD 2 GM in D5W MINI-BAG PLUS 50 ML IV SCH (08:18)
[2023-12-15] MEDS: AMIODARONE 200 MG TAB (PACERONE) PO SCH (18:07)
[2023-12-15 20:00] VITALS: BP 146/47; TEMP 97.9; O2SAT 94
[2023-12-15] MEDS: GABAPENTIN 300 MG CAP PO SCH (20:30)
[2023-12-15] MEDS: PREVNAR-20 VACCINE 0.5ML SYRINGE IM.IMMUN ONE (20:34)
[2023-12-15] MEDS: BENZONATATE 100MG CAPSULE PO SCH (22:32)
[2023-12-16] MEDS: ACETAMINOPHEN TAB 650MG DOSE (2X325MG) PO PRN (00:11)
[2023-12-16 05:15] VITALS: BP 128/63; TEMP 97.3; O2SAT 96
[2023-12-16 07:43] LABS: BASO % 0.2 % (0.0-1.0); EOS # 0.1 10^3/uL (0.0-0.5); EOS % 0.7 % (0.0-3.0); HEMATOCRIT 31.2 % (36.0-47.0); HEMOGLOBIN 10.3 g/dl (12.0-15.5); LYMPH # 2.2 10^3/uL (1.5-5.0); LYMPH % 18.3 % (24.0-44.0); MEAN CORPUSCULAR HEMOGLOBIN 31.5 pg (27.0-33.0); MEAN CORPUSCULAR VOLUME 95.4 fl (80.0-96.0); MONO # 0.6 10^3/uL (0.0-0.8); MONO % 5.3 % (2.0-8.0); NEUTROPHILS # 9.1 10^3/uL (1.5-8.5); NEUTROPHILS % 74.6 % (36.0-66.0); PLATELET COUNT, AUTOMATED 264 10^3/uL (150-450); RED BLOOD COUNT 3.27 10^6/uL (4.00-5.40); WHITE BLOOD COUNT 12.2 10^3/uL (4.0-10.0)
[2023-12-16 08:11] LABS: CALCIUM LEVEL 8.8 MG/DL (8.3-10.6); CREATININE FOR GFR 1.11 MG/DL (0.55-1.30); MAGNESIUM LEVEL 1.9 MG/DL (1.8-2.4); POTASSIUM SERUM 4.3 MMOL/L (3.5-5.1)
[2023-12-16] MEDS: CLOPIDOGREL 75 MG TAB PO SCH (09:21)
[2023-12-16] MEDS: CitaloPRAM (CeleXA) 20 MG TAB PO SCH (09:21)
[2023-12-16] MEDS: EZETIMIBE 10MG TABLET (ZETIA) PO SCH (09:21)
[2023-12-16] MEDS: CYANOCOBALAMIN 500 MCG TAB PO SCH (09:21)
[2023-12-16 09:22] VITALS: BP 119/54
[2023-12-16] MEDS: oxyBUTYnin *DITROPAN XL* 5 MG TABCR PO SCH (09:22)
[2023-12-16] MEDS: ATORVASTATIN 20 MG TAB PO SCH (09:22)
[2023-12-16 09:30] VITALS: O2SAT 99
[2023-12-16 09:44] VITALS: O2SAT 97
[2023-12-16] MEDS ORDERED: DOXY100T PO (10:58)
[2023-12-16] MEDS ORDERED: BENZ-18 PO (10:58)
[2023-12-16] MEDS ORDERED: CEFD1CAP9 PO (10:59)
[2023-12-16] MEDS ORDERED: MUCI600T31 PO (10:59)
[2023-12-16 12:00] VITALS: O2SAT 95
[2023-12-17 17:38] LABS: MYCOPLASMA PNEUMONIAE IGG 2.82 (<=0.90)
[2023-12-18 12:00] VITALS: BP 131/93; TEMP 98.4; O2SAT 93
== END 2023-12-16 12:36 | disposition home or self-care (01) | DRG 195 ==
LOC: M ED 15:10 → M ED INP 18:09 → M MSPAV 21:46
PROVIDERS: ADMIT Student in an Organized Health Care Education/Training Program; ATTEND Student in an Organized Health Care Education/Training Program
DX: J18.9 Pneumonia, unspecified organism (principal); E78.5 Hyperlipidemia, unspecified; I10 Essential (primary) hypertension; M19.90 Unspecified osteoarthritis, unspecified site; F32.A Depression, unspecified; I73.9 Peripheral vascular disease, unspecified; L40.9 Psoriasis, unspecified; Z95.828 Presence of other vascular implants and grafts; Z86.718 Personal history of other venous thrombosis and embolism; Z90.79 Acquired absence of other genital organ(s); Z87.891 Personal history of nicotine dependence; Z79.02 Long term (current) use of antithrombotics/antiplatelets; Z79.899 Other long term (current) drug therapy; Z88.8 Allergy status to other drugs, medicaments and biological substances; Z11.52 Encounter for screening for COVID-19; I48.91 Unspecified atrial fibrillation

== ENCOUNTER → 2024-01-21 | Outpatient (CLI) | payer OTHER ==
[~2024-01-21] MED LIST changes: +AMIO200T49 PO; +BENZ-18 PO; +CEFD1CAP9 PO; +DOXY100T PO; +EZET10TA58 PO; +GABA-282 PO; +LISI10TA22 PO; +MUCI600T31 PO; +XARE20TA PO
[2024-01-21 15:31] LABS: BASO # 0.1 10^3/uL (0.0-0.2); BASO % 0.8 % (0.0-1.0); EOS # 0.1 10^3/uL (0.0-0.5); EOS % 1.9 % (0.0-3.0); HEMATOCRIT 37.4 % (36.0-47.0); HEMOGLOBIN 12.2 g/dl (12.0-15.5); LYMPH # 2.1 10^3/uL (1.5-5.0); MEAN CORPUSCULAR HEMOGLOBIN 31.9 pg (27.0-33.0); MEAN CORPUSCULAR HGB CONC 32.6 g/dl (32.0-36.5); MEAN CORPUSCULAR VOLUME 97.9 fl (80.0-96.0); MONO # 0.4 10^3/uL (0.0-0.8); MONO % 5.9 % (2.0-8.0); NEUTROPHILS # 4.6 10^3/uL (1.5-8.5); PLATELET COUNT, AUTOMATED 237 10^3/uL (150-450); RED BLOOD COUNT 3.82 10^6/uL (4.00-5.40); WHITE BLOOD COUNT 7.3 10^3/uL (4.0-10.0)
[2024-01-21 15:54] LABS: ALBUMIN 3.9 G/DL (3.2-5.2); CALCIUM LEVEL 9.5 MG/DL (8.3-10.6); CREATININE FOR GFR 1.45 MG/DL (0.55-1.30); GLOMERULAR FILTRATION RATE 38.2 (>45); POTASSIUM SERUM 4.8 MMOL/L (3.5-5.1); TOTAL PROTEIN 7.1 G/DL (5.7-8.2)
== END ==
LOC: M PLALAB 13:26
PROVIDERS: ATTEND Registered Nurse
DX: J18.9 Pneumonia, unspecified organism (principal)

== ENCOUNTER → 2024-02-03 | Outpatient (CLI) | payer OTHER | LOC: M WHC 13:28 | PROVIDERS: ATTEND Registered Nurse | DX: Z12.31 Encounter for screening mammogram for malignant neoplasm of breast (principal); Z13.820 Encounter for screening for osteoporosis; M85.89 Other specified disorders of bone density and structure, multiple sites ==

== ENCOUNTER → 2024-02-29 | Outpatient (CLI) | payer OTHER | LOC: M WHC 07:47 | PROVIDERS: ATTEND Registered Nurse | DX: R92.2 Inconclusive mammogram (principal); N63.21 Unspecified lump in the left breast, upper outer quadrant ==

== ENCOUNTER → 2024-03-28 | Outpatient (CLI) | payer OTHER ==
[~2024-03-28] MED LIST changes: +GABA-1172 PO; -GABA-282 PO
[2024-03-28 18:51] LABS: ALBUMIN 3.8 G/DL (3.2-5.2); BILIRUBIN,TOTAL 0.8 MG/DL (0.3-1.2); CALCIUM LEVEL 9.8 MG/DL (8.3-10.6); CREATININE FOR GFR 1.38 MG/DL (0.55-1.30); GLOMERULAR FILTRATION RATE 40.5 (>45); POTASSIUM SERUM 4.4 MMOL/L (3.5-5.1); TOTAL PROTEIN 7.1 G/DL (5.7-8.2)
== END ==
LOC: M PLALAB 15:45
PROVIDERS: ATTEND Registered Nurse
DX: R94.4 Abnormal results of kidney function studies (principal)

== ENCOUNTER 2024-04-21 21:53 | Emergency (ER) | payer OTHER ==
[~2024-04-21] VITALS: Ht 160 cm; Wt 77.3 kg
[2024-04-21] MEDS ORDERED: ISOVUE-370 76% 100ML VIAL As Ordered ONE (22:30)
[2024-04-21 22:54] LABS: BASO % 0.5 % (0.0-1.0); EOS # 0.1 10^3/uL (0.0-0.5); EOS % 1.9 % (0.0-3.0); HEMATOCRIT 34.4 % (36.0-47.0); HEMOGLOBIN 11.3 g/dl (12.0-15.5); LYMPH # 2.5 10^3/uL (1.5-5.0); LYMPH % 34.2 % (24.0-44.0); MEAN CORPUSCULAR HEMOGLOBIN 31.5 pg (27.0-33.0); MEAN CORPUSCULAR HGB CONC 32.8 g/dl (32.0-36.5); MEAN CORPUSCULAR VOLUME 95.8 fl (80.0-96.0); MONO # 0.5 10^3/uL (0.0-0.8); MONO % 7.3 % (2.0-8.0); NEUTROPHILS # 4.1 10^3/uL (1.5-8.5); NEUTROPHILS % 55.8 % (36.0-66.0); PLATELET COUNT, AUTOMATED 237 10^3/uL (150-450); RED BLOOD COUNT 3.59 10^6/uL (4.00-5.40); WHITE BLOOD COUNT 7.3 10^3/uL (4.0-10.0)
[2024-04-21 23:09] LABS: INR 2.9; PARTIAL THROMBOPLASTIN TIME 52.8 SECONDS (24.8-34.2); PROTHROMBIN TIME 30.2 SECONDS (12.5-14.5)
[2024-04-21 23:33] LABS: CALCIUM LEVEL 9.5 MG/DL (8.3-10.6); CK-MB VALUE MASS 1.4 NG/ML (<3.6); CREATININE FOR GFR 1.15 MG/DL (0.55-1.30); GLOMERULAR FILTRATION RATE 49.8 (>45); POTASSIUM SERUM 3.7 MMOL/L (3.5-5.1)
[2024-04-21 23:35] LABS: MB/CK RELATIVE INDEX 0.66 (< OR =4)
[2024-04-22 02:10] VITALS: BP 137/65; TEMP 97.4; O2SAT 97
== END 2024-04-22 02:55 | disposition short-term general hospital (02) ==
LOC: M ED 21:53
DX: I63.9 Cerebral infarction, unspecified (principal); I65.01 Occlusion and stenosis of right vertebral artery; I65.23 Occlusion and stenosis of bilateral carotid arteries; I25.2 Old myocardial infarction; I10 Essential (primary) hypertension; E78.5 Hyperlipidemia, unspecified; E55.9 Vitamin D deficiency, unspecified; F32.A Depression, unspecified; Z88.8 Allergy status to other drugs, medicaments and biological substances; Z79.2 Long term (current) use of antibiotics; Z79.899 Other long term (current) drug therapy; Z79.01 Long term (current) use of anticoagulants
CPT/HCPCS: 36415; 70450; 70496; 70498; 71045; 80047; 80048; 82550; 82553; 84484; 85025; 85610; 85730; 93005; 93041; 94760; 99291; Q9967

== ENCOUNTER → 2024-05-03 | Outpatient (CLI) | payer OTHER ==
[~2024-05-03] MED LIST changes: +ISOVUE-370 76% 100ML VIAL As Ordered ONE
== END ==
LOC: M RAD 09:10
PROVIDERS: ATTEND Surgery Vascular Surgery
DX: I70.203 Unspecified atherosclerosis of native arteries of extremities, bilateral legs (principal); K55.1 Chronic vascular disorders of intestine
CPT/HCPCS: 75635; Q9967

== ENCOUNTER → 2024-06-13 | Outpatient (REF) | payer OTHER ==
[~2024-06-13] MED LIST changes: -ISOVUE-370 76% 100ML VIAL As Ordered ONE
== END ==
LOC: M LAB REF 17:08
PROVIDERS: ATTEND Internal Medicine Nephrology
DX: N39.0 Urinary tract infection, site not specified (principal)

== ENCOUNTER → 2024-07-31 | Outpatient (CLI) | payer MEDICARE | LOC: M RAD 07:39 | PROVIDERS: ATTEND Internal Medicine Nephrology | DX: I70.1 Atherosclerosis of renal artery (principal); Z87.440 Personal history of urinary (tract) infections ==

== ENCOUNTER → 2024-07-31 | Outpatient (CLI) | payer MEDICARE ==
[2024-07-31 15:19] LABS: APPEARANCE, URINE HAZY (CLEAR); BACTERIA, URINE AUTO NEGATIVE (NEGATIVE); BILIRUBIN, URINE AUTO NEGATIVE (NEGATIVE); BLOOD, URINE BLOOD NEGATIVE (NEGATIVE); COLOR, URINE YELLOW (YELLOW); GLUCOSE, URINE (UA) AUTO NEGATIVE (NEGATIVE); KETONE, URINE AUTO NEGATIVE (NEGATIVE); LEUKOCYTE ESTERASE, URINE AUTO 1+ (NEGATIVE); MUCUS, URINE SMALL (NEGATIVE); NITRITE, URINE AUTO NEGATIVE (NEGATIVE); PROTEIN, URINE AUTO NEGATIVE (NEGATIVE); RBC, URINE AUTO 1 /HPF (0-3); SPECIFIC GRAVITY URINE AUTO 1.016 (1.002-1.035); SQUAMOUS EPITHELIAL CELL UR AU 4 /HPF (0-6); UROBILINOGEN, URINE AUTO 0.2 mg/dL (0.0-2.0); WBC, URINE AUTO 7 /HPF (0-3)
== END ==
LOC: M PLALAB 10:42
PROVIDERS: ATTEND Physician Assistant
DX: Z87.440 Personal history of urinary (tract) infections (principal)

== ENCOUNTER → 2024-09-19 | Outpatient (CLI) | payer MEDICARE ==
[2024-09-19 15:47] LABS: ALBUMIN 3.5 G/DL (3.2-5.2); BILIRUBIN,TOTAL 0.7 MG/DL (0.3-1.2); CALCIUM LEVEL 9.4 MG/DL (8.3-10.6); CHOLESTEROL RISK RATIO 3.68 (<5); CREATININE FOR GFR 1.18 MG/DL (0.55-1.30); GLOMERULAR FILTRATION RATE 48.3 (>45); HDL CHOLESTEROL 45.9 MG/DL (>40); LDL CHOLESTEROL 91.5 MG/DL (<100); NON-HDL-C 123.1 MG/DL; POTASSIUM SERUM 4.2 MMOL/L (3.5-5.1); TOTAL PROTEIN 7.2 G/DL (5.7-8.2)
[2024-09-19 15:50] LABS: FREE T4 0.64 NG/DL (0.89-1.76); THYROID STIMULATING HORMONE 58.513 uIU/ML (0.55-4.78)
== END ==
LOC: M PLALAB 12:40
PROVIDERS: ATTEND Nurse Practitioner Family
DX: I10 Essential (primary) hypertension (principal); E78.5 Hyperlipidemia, unspecified; E03.9 Hypothyroidism, unspecified

== ENCOUNTER → 2025-01-04 | Outpatient (CLI) | payer MEDICARE ==
[~2025-01-04] MED LIST changes: -AMIO200T49 PO; +AMIO200T54 PO
[2025-01-04 14:11] LABS: FREE T4 0.92 NG/DL (0.89-1.76)
== END ==
LOC: M PLALAB 10:56
PROVIDERS: ATTEND Nurse Practitioner Family
DX: E03.9 Hypothyroidism, unspecified (principal)

== ENCOUNTER → 2025-03-06 | Outpatient (CLI) | payer MEDICARE ==
[2025-03-06 13:47] LABS: PLATELET COUNT, AUTOMATED 233 10^3/uL (150-450)
[2025-03-06 14:13] LABS: ALT/SGPT 21.0 U/L (7.0-40); AST/SGOT 22.0 U/L (<34); CALCIUM LEVEL 9.4 MG/DL (8.3-10.6); CARBON DIOXIDE LEVEL 28.0 MMOL/L (20-31); CHLORIDE LEVEL 108.0 MMOL/L (98-107); CREATININE FOR GFR 0.74 MG/DL (0.55-1.30); GLOMERULAR FILTRATION RATE 87.5 (>45); POTASSIUM SERUM 3.8 MMOL/L (3.5-5.1); SODIUM LEVEL 145.0 MMOL/L (136-145)
== END ==
LOC: M LAB 12:55
PROVIDERS: ATTEND Nurse Practitioner Acute Care
DX: I48.0 Paroxysmal atrial fibrillation (principal); K92.2 Gastrointestinal hemorrhage, unspecified; R82.90 Unspecified abnormal findings in urine

== ENCOUNTER → 2025-03-08 | Outpatient (REF) | payer MEDICARE | LOC: M LAB REF 12:45 | PROVIDERS: ATTEND Nurse Practitioner Acute Care | DX: K92.2 Gastrointestinal hemorrhage, unspecified (principal) ==

== ENCOUNTER → 2025-03-28 | Outpatient (REF) | payer MEDICARE ==
[2025-03-28 18:39] LABS: BASO # 0.1 10^3/uL (0.0-0.2); BASO % 0.8 % (0.0-1.0); EOS # 0.1 10^3/uL (0.0-0.5); EOS % 1.7 % (0.0-3.0); LYMPH # 2.5 10^3/uL (1.5-5.0); LYMPH % 33.4 % (24.0-44.0); MONO # 0.4 10^3/uL (0.0-0.8); MONO % 5.6 % (2.0-8.0); NEUTROPHILS # 4.4 10^3/uL (1.5-8.5); NEUTROPHILS % 58.2 % (36.0-66.0); PLATELET COUNT, AUTOMATED 303 10^3/uL (150-450)
[2025-03-28 18:51] LABS: ALT/SGPT 19.0 U/L (7.0-40); AST/SGOT 22.0 U/L (<34); CALCIUM LEVEL 9.2 MG/DL (8.3-10.6); CARBON DIOXIDE LEVEL 28.0 MMOL/L (20-31); CHLORIDE LEVEL 109.0 MMOL/L (98-107); CREATININE FOR GFR 0.86 MG/DL (0.55-1.30); GLOMERULAR FILTRATION RATE 73.1 (>45); POTASSIUM SERUM 4.3 MMOL/L (3.5-5.1); SODIUM LEVEL 142.0 MMOL/L (136-145)
[2025-03-28 18:54] LABS: FREE T4 1.28 NG/DL (0.89-1.76)
== END ==
LOC: M LAB REF 17:23
PROVIDERS: ATTEND Nurse Practitioner Family
DX: E03.9 Hypothyroidism, unspecified (principal)

== ENCOUNTER → 2025-03-28 | Outpatient (CLI) | payer MEDICARE ==
[~2025-03-28] MED LIST changes: +ISOVUE-370 76% 100 ML VIAL As Ordered ONE
== END ==
LOC: M RAD 15:53
PROVIDERS: ATTEND Surgery Vascular Surgery
DX: I70.211 Atherosclerosis of native arteries of extremities with intermittent claudication, right leg (principal); K56.1 Intussusception; E07.9 Disorder of thyroid, unspecified
CPT/HCPCS: 75635; 80053; 84439; 84443; 85025; Q9967